=== PATIENT | female | born 1970 | race Caucasian/White ===

== ENCOUNTER 2020-01-02 13:06 | Emergency (ER) | payer OTHER, SELFPAY ==
--- NOTE | 2020-01-02 13:09 | ED.GENADULT ---
HPI - General Adult General Chief complaint: Upper Respiratory Infection Stated complaint: ears/sore throat/chest tightness Time Seen by Provider: 01/02/20 13:08 Source: patient Mode of arrival: ambulatory Limitations: no limitations History of Present Illness HPI narrative: 49-year-old female patient presents to the [facility] with complaints of cold symptoms, sore throat and headache for the past 2 days. Patient states she is also had a little bit of bilateral ear pain. States she has had a little bit of a runny nose but denies any cough. Patient states she also feels like she has had some chest pain feels like something is sitting on her chest since this morning. Denies any shortness of breath, abdominal pain, nausea, vomiting or diarrhea. Patient states she did get a flu shot this year. Denies taking anything for her symptoms. Related Data Home Medications Medication Instructions Recorded Confirmed No Home Medications 01/02/20 01/02/20 Allergies Allergy/AdvReac Type Severity Reaction Status Date / Time Iodinated Contrast Media Allergy Unknown Anaphylactic Verified 12/06/19 11:11 Shock peanut Allergy Unknown Verified 12/06/19 11:11 Contrast Media Allergy Unknown ANAPHYLAXIS Uncoded 03/21/18 11:15 Review of Systems Review of Systems: Narrative: CONSTITUTIONAL: Denies fever, chills, or sweats. EYES: Denies visual changes, redness, or discharge. ENT: Positive rhinorrhea, congestion, sore throat, and bilateral otalgia. CARDIOVASCULAR: Positive midsternal chest pain, denies palpitations, or edema. RESPIRATORY: Denies cough or dyspnea. GASTROINTESTINAL: Denies abdominal pain, nausea, vomiting, or diarrhea. GENITOURINARY: Denies dysuria or hematuria. SKIN: Denies rash or itching. MUSCULOSKELETAL: Denies back pain, joint pain, or myalgia. NEUROLOGIC: Positive headache, denies numbness, or weakness. PSYCHIATRIC: Denies anxiety or depression. [facility] Past Medical History Medical History (Updated 01/02/20 @ 13:44 by TREVOR Burns) Asthma Hypothyroidism Surgical History Surgical History (Updated 01/02/20 @ 13:14 by TREVOR Burns) Hx of tonsillectomy Social History Social History Smoking status: Never smoker Alcohol intake: never Comments At the time of my signature I agree with nursing past medical history, surgical, social, and family history. There is no relevant family history pertinent to the presenting complaint. Exam Narrative: Exam Narrative: GENERAL: Well-appearing, well-nourished, and in no acute distress. HEAD: Normocephalic, atraumatic. No tenderness noted to frontal maxillary sinuses on palpation. EYES: PERRLA and EOMI. ENT: Nares with erythema and edema noted bilaterally, no rhinorrhea or epistaxis. Mucous membranes moist. Posterior pharynx with some postnasal drip present but no erythema. Bilateral TMs are clear with no erythema or foreign bodies in the canal. NECK: Supple. No lymphadenopathy CHEST: Clear to auscultation. No respiratory distress. Patient able talk in clear complete sentences. HEART: Regular rate and rhythm. No murmur heard. Normal peripheral pulses. ABDOMEN: Soft, nontender, nondistended, normal active bowel sounds. EXTREMITIES: Normal range of motion. No edema. SKIN: Warm, dry, no rash. NEURO: No focal deficits. Alert and oriented x3. Course Reevaluation(s) Reevaluation #1: Reevaluated patient. Discussed with patient her bedside strep test today is negative. Discussed with her sugar is with in normal range at this time. Discussed with her that her EKG looks okay today however I am concerned that she is complaining of this chest pain feels like something is sitting on her chest and the fact that I am not able to do a full cardiac work-up here I would recommend that she go the ER for further evaluation and treatment. Patient is refusing to do so stating that she thinks is just stress. Discussed wit
[2020-01-02 13:14] VITALS: BP 119/72; PULSE 86; RESP 16; TEMP 36.7; O2SAT 100
[2020-01-02 13:39] LABS: Glucose Point of Care 82 (65-105)
--- NOTE | 2020-01-02 14:33 | ECG_ITS ---
Measurements Intervals [place] Rate: 68 P: 48 MT: 121 QRS: 74 QRSD: 86 T: 68 QT: 370 QTc: 395 Interpretive Statements SINUS RHYTHM INCOMPLETE RIGHT BUNDLE BRANCH BLOCK LOW QRS VOLTAGE IN PRECORDIAL LEADS BORDERLINE ECG Electronically Signed On 01-02-2020 18:34:03 [employer]ER by Mark Villegas D.O.
== END 2020-01-02 13:55 | disposition home or self-care (01) ==
PROVIDERS: Emergency Provider Nurse Practitioner Family; PCP Family Medicine
DX: J02.9 Acute pharyngitis, unspecified (principal); R07.9 Chest pain, unspecified; J45.909 Unspecified asthma, uncomplicated; E03.9 Hypothyroidism, unspecified; I45.10 Unspecified right bundle-branch block
CPT/HCPCS: 87081; 87880; 93005; 99213; G0463

== ENCOUNTER 2020-01-07 13:54 | Emergency (ER) | payer OTHER, SELFPAY ==
--- NOTE | ~2020-01-07 | CT_ITS ---
EXAMINATION: CT cervical spine wo con EXAM DATE: 01/07/2020 14:32 INDICATION: Neck pain after fall. TECHNIQUE: Spiral CT of the cervical spine was performed without contrast. Axial images were reviewe d. Coronal and sagittal reformatted images were also reviewed. The dose-length product (DLP) for thi s examination was 130.49 mGy-cm. The exposure was tailored according to patient size (auto mA exposu re control), and iterative reconstruction (ASIR) was used as additional dose reduction technique. ere is no prior study for comparison. FINDINGS: There is no evidence of acute cervical fracture. The odontoid process is intact. Pre-den s space is normal. Prevertebral soft tissue is normal. There are no soft tissue abnormalities ident ified. There is no disc space widening or traumatic vertebral body subluxation suspected. Moderate cervical disc disease C5-6 and C6-7. Most narrowed neural foramina is the left C6-7 neural foramina w hich has moderate stenosis. A detailed level by level evaluation of spondylosis can be added as adde ndum if requested. IMPRESSION: 1. No acute cervical fracture. Reviewed, dictated and finalized at location A. CUTTER
[2020-01-07 14:03] VITALS: BP 120/77; PULSE 18; RESP 80; TEMP 36.4; O2SAT 100
--- NOTE | 2020-01-07 16:17 | ED.FALL ---
HPI - Fall General Chief Complaint: Fall Stated Complaint: neck injury Time Seen by Provider: 01/07/20 16:07 Source: patient Mode of arrival: ambulatory Limitations: no limitations History of Present Illness HPI Narrative: Patient is a 49 yo female who presents after sustaining a ground level fall yesterday. Her dog tripped her causing her to fall backwards. patient did not strike head or lose consciousness. Patient notes pain to neck and low back as well as left bicep. Patient has taken antiinflammatories with no relief. Patient presents in no distress. pain is constant and made worse with activity. presents in no distress. Onset (ago): day(s) Fall from: standing Context: tripped/slipped Location of injury: back Related Data Allergies Allergy/AdvReac Type Severity Reaction Status Date / Time Iodinated Contrast Media Allergy Unknown Anaphylactic Verified 01/07/20 15:02 Shock peanut Allergy Unknown Verified 01/07/20 14:03 Contrast Media Allergy Unknown ANAPHYLAXIS Uncoded 01/07/20 15:02 Review of Systems Review of Systems: All systems reviewed & are unremarkable except as noted in HPI and below PMFSH Past Medical History Medical History Asthma Hypothyroidism Surgical History Surgical History Hx of tonsillectomy Social History Social History Smoking status: Never smoker Alcohol intake: never Gender identity (if verbalized by the patient): Female Exam Const: General: cooperative, healthy appearing, comfortable, no acute distress, well developed, alert and awake Nutritional Appearance: average body habitus and well nourished Orientation/consciousness: oriented to person, oriented to place and oriented to time Limitations: no limitations HENMT: Head: normal to inspection, normocephalic and atraumatic Ears: hearing grossly normal bilaterally General nose exam: Normal external nose present Face and sinus: normal facial exam Mouth: Yes Normal oral and palatal mucosa present and Yes lip normal Eyes: General: appearance normal, both eyes and all related structures Visual Granados: normal visual granados by confrontation Eyelids: eyelids normal Conjunctivae: conjunctivae normal Pupils: Equal, round and reactive pupils present Neck: Neck: normal visual inspection, full ROM and tender Chest: Chest palpation & inspection: normal inspection of the chest Resp: Effort & Inspection: normal respiratory effort and able to speak in complete sentences Auscultation: clear to auscultation bilaterally Cardio: Rate: regular rate Rhythm: regular rhythm Back/Spine/Pelvis: Back: CVA tenderness (right) Cervical Spine: Cervical spine tenderness Thoracic/Lumbar Spine: thoracic and lumbar spine normal to inspection and paraspinal muscle tenderness Skin: General skin exam: normal color and no rashes or lesions noted Trauma: no lacerations or abrasions Hair: normal Nails: normal Neuro: General: patient oriented x3, gait normal, moves all extremities and CN's II-XI intact bilaterally Cranial nerves: Yes CN's II-XII intact bilaterally Cognition (Neuro): normal cognition Speech: normal speech Gait exam (Neuro): Normal gait present Extrem: General: normal to inspection Left upper extremity: normal to inspection and full ROM Shoulder/upper arm images: 1. tender left bicep Psych: Appearance: grossly normal and well kempt Mental Status: mental status grossly normal Speech and movement: Normal speech and movement present Course Course Emergency Course: patient resting comfortably no distress aware of case findings Vital Signs Vital signs: Vital Signs Temperature 97.6 F 01/07/20 14:03 Pulse Rate 18 L 01/07/20 14:03 Respiratory Rate 80 H 01/07/20 14:03 Blood Pressure 120/77 01/07/20 14:03 Pulse Oximetry 100 01/07/20 14:03
== END 2020-01-07 17:10 | disposition home or self-care (01) ==
PROVIDERS: Emergency Provider Emergency Medicine; PCP Family Medicine
DX: S16.1XXA Strain of muscle, fascia and tendon at neck level, initial encounter (principal); S39.012A Strain of muscle, fascia and tendon of lower back, initial encounter; J45.909 Unspecified asthma, uncomplicated; E03.9 Hypothyroidism, unspecified; W54.8XXA Other contact with dog, initial encounter
CPT/HCPCS: 72125; 99284; L0140

== ENCOUNTER 2020-01-18 09:38 | Outpatient (CLI) | payer OTHER, SELFPAY ==
[2020-01-18 10:09] LABS: Basophils Percent Auto 0.5 % (0.2-1.2); Eosinophils Absolute Auto 0.1 K/mm3 (0-0.3); Eosinophils Percent Auto 1.6 % (0-4.4); Hematocrit 42.9 % (37.0-47.0); Hemoglobin 14.6 g/dL (12.0-15.0); Immature Granulocyte Absolute 0.01 K/mm3 (0.00-0.031); Immature Granulocyte Percent A 0.2 % (0-0.5); Lymphocytes Absolute Auto 1.34 K/mm3 (0.9-3.2); Lymphocytes Percent Auto 30.8 % (18.3-44.2); Mean Corpuscular Hemoglobin 28.3 pg (26-34); Mean Corpuscular Volume 83.3 fl (80-100); Mean Platelet Volume 10.8 fl (7.4-10.4); Monocytes Absolute Auto 0.3 K/mm3 (0.1-0.6); Monocytes Percent Auto 7.4 % (2.6-8.5); Neutrophils Absolute Auto 2.6 K/mm3 (1.3-6.7); Neutrophils Percent Auto 59.5 % (45.5-73.1); Platelet Count Result 206 k/mm3 (150-375); Red Blood Count 5.15 M/mm3 (4.2-5.4); Red Cell Distribution Width 15.1 % (11.5-14.5); White Blood Count 4.4 K/mm3 (4.5-10.0)
[2020-01-18 10:23] LABS: Add Urine Microscopic? YES; Appearance Urine Clear (Clear); Bacteria Urine Trace /hpf; Bilirubin Urine Negative (Negative); Blood Urine 1+ (Negative); Color Urine Yellow (Yellow); Glucose Urine UA Negative (Negative); Ketones Urine Negative (Negative); Leukocyte Esterase Ur 1+ LEU/UL (NEGATIVE); Mucus Urine Few /lpf; Nitrate Urine Negative (Negative); Protein Urine Negative (Negative); Specific Grav Ur 1.023 (1.001-1.035); Squamous Epithelial Cell Urine Many /hpf (Few); Urobilinogen Urine Negative mg/dL (<2.0)
[2020-01-18 10:24] LABS: Alanine Aminotransferase 17 U/L (4-35); Albumin Level 4.5 g/dL (3.5-5.1); Alkaline Phosphatase 61 U/L (38-126); Aspartate Amino Transferase 22 U/L (14-36); Bilirubin,Total 0.6 mg/dL (0.2-1.3); Blood Urea Nitrogen 12 mg/dL (7-17); Carbon Dioxide 29 mmol/L (22-30); Chloride 103 mmol/L (98-107); Cholesterol 202 mg/dL (0-200); Estimated Glomerular Filt Rate > 60; Glucose 92 mg/dL (65-105); HDL Direct 58 mg/dL; Potassium 4.3 mmol/L (3.4-5.0); Sodium 142 mmol/L (137-145); Triglycerides 90 mg/dL (<150)
[2020-01-18 10:35] LABS: LDL Cholesterol Direct 111 mg/dL
[2020-01-18 10:49] LABS: Free T4 Free Thyroxine 0.82 ng/mL (0.78-2.19)
[2020-01-18 14:38] LABS: T4 Thyroxine 6.84 ug/dL (5.53-11.0)
[2020-01-20 07:19] LABS: Triiodothryronine T3 Uptake 32 % (22-35)
== END 2020-01-18 09:39 | disposition home or self-care (01) ==
PROVIDERS: PCP Family Medicine; Visit Provider Physician Assistant
DX: Z00.00 Encounter for general adult medical examination without abnormal findings (principal); E06.3 Autoimmune thyroiditis
CPT/HCPCS: 36415; 80053; 80061; 81001; 84436; 84439; 84443; 84479; 85025

== ENCOUNTER 2020-02-08 07:37 | Outpatient (CLI) | payer OTHER, SELFPAY ==
[2020-02-08 08:14] LABS: Basophils Percent Auto 0.2 % (0.2-1.2); Eosinophils Absolute Auto 0.1 K/mm3 (0-0.3); Eosinophils Percent Auto 1.1 % (0-4.4); Hematocrit 40.2 % (37.0-47.0); Hemoglobin 14.1 g/dL (12.0-15.0); Immature Granulocyte Absolute 0.01 K/mm3 (0.00-0.031); Immature Granulocyte Percent A 0.2 % (0-0.5); Lymphocytes Absolute Auto 1.18 K/mm3 (0.9-3.2); Lymphocytes Percent Auto 26.6 % (18.3-44.2); Mean Corpuscular HGB Conc 35.1 g/dl (32-36); Mean Corpuscular Hemoglobin 28.9 pg (26-34); Mean Corpuscular Volume 82.4 fl (80-100); Mean Platelet Volume 11.7 fl (7.4-10.4); Monocytes Absolute Auto 0.4 K/mm3 (0.1-0.6); Monocytes Percent Auto 8.8 % (2.6-8.5); Neutrophils Absolute Auto 2.8 K/mm3 (1.3-6.7); Neutrophils Percent Auto 63.1 % (45.5-73.1); Platelet Count Result 194 k/mm3 (150-375); Red Blood Count 4.88 M/mm3 (4.2-5.4); Red Cell Distribution Width 14.6 % (11.5-14.5); White Blood Count 4.4 K/mm3 (4.5-10.0)
[2020-02-08 09:48] LABS: Add Urine Microscopic? YES; Appearance Urine Clear (Clear); Bacteria Urine Trace /hpf; Bilirubin Urine Negative (Negative); Blood Urine Negative (Negative); Color Urine Yellow (Yellow); Glucose Urine UA Negative (Negative); Ketones Urine Trace mg/dL (Negative); Leukocyte Esterase Ur 1+ LEU/UL (NEGATIVE); Mucus Urine Heavy /lpf; Nitrate Urine Negative (Negative); Protein Urine Negative (Negative); Specific Grav Ur 1.019 (1.001-1.035); Squamous Epithelial Cell Urine Many /hpf (Few); Transitional Epi Cells Urine Rare /hpf (None Seen); Urobilinogen Urine Negative mg/dL (<2.0)
== END 2020-02-08 07:38 | disposition home or self-care (01) ==
PROVIDERS: PCP Family Medicine; Visit Provider Physician Assistant
DX: D72.819 Decreased white blood cell count, unspecified (principal); E03.9 Hypothyroidism, unspecified; R31.9 Hematuria, unspecified
CPT/HCPCS: 36415; 81001; 84443; 85025

== ENCOUNTER 2021-01-18 08:39 | Emergency (ER) | payer OTHER, SELFPAY ==
[2021-01-18 08:53] VITALS: BP 132/83; PULSE 92; RESP 16; TEMP 36.2; O2SAT 100
--- NOTE | 2021-01-18 09:10 | ED.GENADULT ---
HPI - General Adult General Chief complaint: Eye Problems Stated complaint: Eye Pain Time Seen by Provider: 01/18/21 09:00 Source: patient and RN notes reviewed Mode of arrival: ambulatory Limitations: no limitations History of Present Illness HPI narrative: Patient presents today complaining of swelling around her left eye since last night. Denies itching. Reports that it stings and is worse this morning then it was last night. States it stings more when her tears hit the area. She was outside all day yesterday. Last night she used her normal eye cream in that area, but does not know the active ingredients in the eye cream, but states it made the area worse. She tried some Benadryl without relief. She also took her normal nondrowsy antihistamine this morning. Denies pain, redness, or drainage to the eye. Denies vision changes. Denies recent illness. Patient rarely wears contacts, but did yesterday. MD complaint: Left eye swelling Related Data Allergies Allergy/AdvReac Type Severity Reaction Status Date / Time Iodinated Contrast Media Allergy Unknown Anaphylactic Verified 01/18/21 08:52 Shock peanut Allergy Unknown Verified 01/18/21 08:52 Contrast Media Allergy Unknown ANAPHYLAXIS Uncoded 01/18/21 08:52 Review of Systems Review of Systems: Narrative: CONSTITUTIONAL: Denies body aches, fever, chills, or sweats. EYES: Denies visual changes, redness, or discharge. Swelling surrounding left eye ENT: Denies rhinorrhea, congestion, sore throat, or otalgia. CARDIOVASCULAR: Denies chest pain, palpitations, or edema. RESPIRATORY: Denies cough or dyspnea. GASTROINTESTINAL: Denies abdominal pain, nausea, vomiting, or diarrhea. GENITOURINARY: Denies dysuria or hematuria. SKIN: Denies rash, itching, or wounds. MUSCULOSKELETAL: Denies back pain, joint pain, or myalgia. NEUROLOGIC: Denies headache, numbness, tingling, or weakness. PSYCH: Denies depression or anxiety. [facility] Past Medical History Medical History Asthma Hypothyroidism Surgical History Surgical History Hx of tonsillectomy Social History Social History Smoking status: Never smoker Alcohol intake: never Substance use: never Substance use type: does not use Gender identity (if verbalized by the patient): Female Comments At time of signature, I have reviewed and agree with nursing past medical, surgical, social and family history unless otherwise noted. Please see nursing chart for further information. There is no relevant family history pertinent to the presenting complaint Exam Narrative: Exam Narrative: GENERAL: Well-appearing, well-nourished, and in no acute distress. HEAD: Normocephalic, atraumatic. EYES: EOMI. PERRL. No redness or drainage. Conjunctivae normal. Mild edema and erythema to skin surrounding the lateral and inferior left eye without papules or vesicles. No induration. Nontender to palpation. Lashes normal. ENT: Mucous membranes pink and moist. Nares clear. No rhinorrhea. TMs normal bilaterally. Throat normal. Uvula midline. NECK: Normal AROM. Supple. No lymphadenopathy. CHEST: No respiratory distress. EXTREMITIES: Normal range of motion. No edema. SKIN: Warm, dry, no rash. Capillary refill normal. Normal skin turgor. NEURO: No focal deficits. Alert and oriented x3. Gait steady. PSYCH: Normal affect. No signs of depression or anxiety. Course Vital Signs Vital signs: Vital Signs Temperature 97.1 F L 01/18/21 08:53 Pulse Rate 92 01/18/21 08:53 Respiratory Rate 16 01/18/21 08:53 Blood Pressure 132/83 01/18/21 08:53 Pulse Oximetry 100 01/18/21 08:53 Temperature 97.1 F L 01/18/21 08:53 Pulse Rate 92 01/18/21 08:53 Respiratory Rate 16 01/18/21 08:53 Blood Pressure 132/83 01/18/21 08:53 Pulse Oximetry 100
== END 2021-01-18 09:15 | disposition home or self-care (01) ==
PROVIDERS: Emergency Provider Nurse Practitioner; PCP Family Medicine
DX: L25.9 Unspecified contact dermatitis, unspecified cause (principal); J45.909 Unspecified asthma, uncomplicated; E03.9 Hypothyroidism, unspecified
CPT/HCPCS: 99213; A9270; G0463

== ENCOUNTER → 2021-02-02 08:01 | Outpatient (CLI) | payer OTHER, SELFPAY ==
[2021-02-02 23:26] LABS: SARS-CoV-2 RNA PCR Negative
== END ==
PROVIDERS: PCP Family Medicine; Visit Provider Nurse Practitioner Family
DX: Z20.822 Contact with and (suspected) exposure to COVID-19 (principal)
CPT/HCPCS: C9803; U0003; U0005

== ENCOUNTER 2021-02-06 10:00 | Outpatient (CLI) | payer OTHER, SELFPAY ==
[2021-02-06 10:33] LABS: Add Urine Microscopic? YES; Appearance Urine Clear (Clear); Bacteria Urine Trace /hpf; Bilirubin Urine Negative (Negative); Blood Urine Negative (Negative); Color Urine Yellow (Yellow); Glucose Urine UA Negative (Negative); Ketones Urine Negative (Negative); Leukocyte Esterase Ur 2+ LEU/UL (NEGATIVE); Mucus Urine Few /lpf; Nitrate Urine Negative (Negative); Protein Urine Negative (Negative); Specific Grav Ur 1.017 (1.001-1.035); Squamous Epithelial Cell Urine Many /hpf (Few); Urobilinogen Urine Negative mg/dL (<2.0)
[2021-02-10 08:16] LABS: FSH 118.6 mIU/mL (***); LH 57.7 mIU/mL (***)
== END 2021-02-06 10:01 | disposition home or self-care (01) ==
PROVIDERS: PCP Family Medicine; Visit Provider Obstetrics & Gynecology
DX: R31.9 Hematuria, unspecified (principal); N91.1 Secondary amenorrhea
CPT/HCPCS: 36415; 81001; 83001; 83002

== ENCOUNTER 2021-02-08 14:02 | Outpatient (CLI) | payer OTHER, SELFPAY | END 2021-02-08 14:03 | disposition home or self-care (01) | LOC: ANHCOVIDVC 14:02 | PROVIDERS: PCP Family Medicine | DX: Z23 Encounter for immunization (principal) | CPT/HCPCS: 0001A; 91300 ==

== ENCOUNTER → 2021-02-17 02:18 | Outpatient (CLI) | payer OTHER, SELFPAY ==
[2021-02-17 19:28] LABS: SARS-CoV-2 RNA PCR Negative
== END ==
PROVIDERS: PCP Family Medicine; Visit Provider Internal Medicine Gastroenterology
DX: Z01.812 Encounter for preprocedural laboratory examination (principal); Z20.822 Contact with and (suspected) exposure to COVID-19
CPT/HCPCS: C9803; U0003; U0005

== ENCOUNTER 2021-02-20 01:58 | Day surgery (SDC) | payer OTHER, SELFPAY ==
[2021-02-03 10:38] VITALS: BMI 25.4
[2021-02-20 10:52] VITALS: BP 120/91; PULSE 97; RESP 16; TEMP 36.4; O2SAT 100
[2021-02-20] MEDS: LACTATED RINGERS 1,000 ML 150 ML IV CONT (10:54)
[2021-02-20 12:54] LABS: Basophils Percent Auto 0.4 % (0.2-1.2); Eosinophils Absolute Auto 0.1 K/mm3 (0-0.3); Eosinophils Percent Auto 0.9 % (0-4.4); Hematocrit 43.2 % (37.0-47.0); Hemoglobin 15.5 g/dL (12.0-15.0); Immature Granulocyte Absolute 0.01 K/mm3 (0.00-0.031); Immature Granulocyte Percent A 0.2 % (0-0.5); Lymphocytes Percent Auto 26.4 % (18.3-44.2); Mean Corpuscular HGB Conc 35.9 g/dl (32-36); Mean Corpuscular Volume 83.7 fl (80-100); Mean Platelet Volume 10.8 fl (7.4-10.4); Monocytes Absolute Auto 0.4 K/mm3 (0.1-0.6); Neutrophils Absolute Auto 3.5 K/mm3 (1.3-6.7); Neutrophils Percent Auto 65.1 % (45.5-73.1); Platelet Count Result 208 k/mm3 (150-375); Red Blood Count 5.16 M/mm3 (4.2-5.4); Red Cell Distribution Width 12.9 % (11.5-14.5); White Blood Count 5.3 K/mm3 (4.5-10.0)
[2021-02-20 13:05] LABS: Alanine Aminotransferase 18 U/L (4-35); Albumin Level 4.3 g/dL (3.5-5.1); Alkaline Phosphatase 73 U/L (38-126); Anion Gap 5 mmol/L (8-16); Aspartate Amino Transferase 23 U/L (14-36); Bilirubin,Total 0.6 mg/dL (0.2-1.3); Blood Urea Nitrogen 8 mg/dL (7-17); Calcium 9.2 mg/dL (8.4-10.2); Carbon Dioxide 29 mmol/L (22-30); Chloride 106 mmol/L (98-107); Estimated CRCL calculation 77 ml/min; Estimated Glomerular Filt Rate > 60; Glucose 89 mg/dL (65-105); Potassium 4.2 mmol/L (3.4-5.0); Sodium 140 mmol/L (137-145)
[2021-02-20 13:08] LABS: INR 0.9; Prothrombin Time 12.6 Seconds (11.1-14.7)
[2021-02-20 13:09] LABS: Partial Thromboplastin Time 31.7 SECONDS (22.3-36.8)
--- NOTE | 2021-02-20 13:11 | WPDGICN ---
GI Consult Note Consult date/time: 02/20/21 13:11 HPI: Reason for visit is colonoscopy. This very pleasant lady seen in consultation request the primary physician. Screening colonoscopy. Recommendation: Colonoscopy. History: This very pleasant lady is here for screening colonoscopy. GI review systems negative. She does complain of some easy bleeding. Otherwise review of systems unremarkable. Physical examination: General: very pleasant patient in no acute distress. HEENT: Head was normocephalic sclerae is clear mouth without masses neck was supple. Heart: Rate rhythm regular without S3 or S4. Lungs: CTA. Abdomen: Soft with no guarding or rigidity. Bowel sounds were active. Neurologic: Cranial nerves 2 through 12 intact. No focal defects. No clonus. Musculoskeletal system: Revealed no joint tenderness or swelling no muscle atrophy. Extremities: Reveal no significant edema. Skin: Warm and dry with normal turgor. Mental status: intact. Patient is alert and oriented. Review of Systems Review of Systems: All systems reviewed & are unremarkable except as noted in HPI and below PMFSH Past Medical History Medical History Asthma Hypothyroidism Surgical History Surgical History Hx of tonsillectomy Social History Social History Smoking status: Never smoker Alcohol intake: never Substance use: never Substance use type: unknown Living arrangements: with family Gender identity (if verbalized by the patient): Female Spiritual care concerns: No Meds Home Medications and Allergies Home Medications Medication Instructions Recorded Confirmed Type ascorbate calcium (vitamin C) 1 tab-cap PO DAILY 02/03/21 02/06/21 History elderberry fruit [Elderberry] 200 mg PO DAILY 02/03/21 02/06/21 History multivitamin with minerals [All 1 tablet PO DAILY 02/03/21 02/06/21 History Purpose Multivitamin-Min] azithromycin 250 mg tablet See Rx Instructions PO .COMPLEX #6 02/06/21 02/20/21 Rx tablet methylprednisolone 4 mg tablets in See Rx Instructions PO PER PKG DIR 02/06/21 02/20/21 Rx a dose pack #21 ea Allergies Allergy/AdvReac Type Severity Reaction Status Date / Time Iodinated Contrast Media Allergy Unknown Anaphylactic Verified 02/20/21 10:48 Shock peanut Allergy Unknown Verified 02/20/21 10:48 Contrast Media Allergy Unknown ANAPHYLAXIS Uncoded 02/03/21 10:25 Vital Signs Vital Signs - 24 hr 02/20/21 10:52 Temperature 36.4 C L Pulse Rate 97 Respiratory Rate 16 Blood Pressure 120/91 H Pulse Oximetry 100 Results Labs CBC & Chem 7: 02/20/21 12:49 02/20/21 12:49 Labs: Short CBC 02/20/21 Range/Units 12:49 WBC 5.3 (4.5-10.0) K/mm3 Hgb 15.5 H (12.0-15.0) g/dL Hct 43.2 (37.0-47.0) % Plt Count 208 (150-375) k/mm3 [facility] 02/20/21 12:49 Sodium 140 Potassium 4.2 Chloride 106 Carbon Dioxide 29 BUN 8 Creatinine 0.90 Glucose 89 Calcium 9.2 Liver Function 02/20/21 Range/Units 12:49 Total Bilirubin 0.6 (0.2-1.3) mg/dL Direct Bilirubin 0.0 (0-0.3) mg/dL AST 23 (14-36) U/L ALT 18 (4-35) U/L Alkaline Phosphatase 73 (38-126) U/L Albumin 4.3 (3.5-5.1) g/dL
[2021-02-20 13:39] VITALS: BP 104/71; PULSE 81; RESP 15; O2SAT 100
[2021-02-20 13:49] VITALS: BP 106/69; PULSE 76; RESP 18; O2SAT 100
[2021-02-20 13:59] VITALS: BP 111/78; PULSE 72; RESP 18; O2SAT 100
== END 2021-02-20 14:15 | disposition home or self-care (01) ==
PROVIDERS: PCP Family Medicine; Visit Provider Internal Medicine Gastroenterology
PROC: 0DJD8ZZ Inspection of Lower Intestinal Tract, Via Natural or Artificial Opening Endoscopic (ICD-10-PCS; CPT 45378; principal; 2021-02-20 12:00)
DX: Z12.11 Encounter for screening for malignant neoplasm of colon (principal); D12.4 Benign neoplasm of descending colon; D12.3 Benign neoplasm of transverse colon; E03.9 Hypothyroidism, unspecified; J45.909 Unspecified asthma, uncomplicated
CPT/HCPCS: 45380; 36415; 80048; 80076; 85025; 85610; 85730; 88305; J2704; J7120

== ENCOUNTER 2021-03-01 14:02 | Outpatient (CLI) | payer OTHER, SELFPAY | END 2021-03-01 14:03 | disposition home or self-care (01) | LOC: ANHCOVIDVC 14:02 | PROVIDERS: PCP Family Medicine | DX: Z23 Encounter for immunization (principal) | CPT/HCPCS: 0002A; 91300 ==

== ENCOUNTER 2022-03-12 10:59 | Emergency (ER) | payer OTHER, SELFPAY ==
[2022-03-12 11:08] VITALS: BP 114/80; PULSE 83; RESP 16; TEMP 36.2; O2SAT 100
--- NOTE | 2022-03-12 11:11 | ED.SKABFB ---
HPI - Skin/Abscess/Foreign Bdy General Chief complaint: Skin/Abscess/Foreign Body Stated complaint: Rash on Face Time Seen by Provider: 03/12/22 11:11 Source: patient Mode of arrival: ambulatory Limitations: no limitations History of Present Illness HPI narrative: 51-year-old female presents with complaint of itchy, red rash to face For 2 days. Is taking Benadryl to treat itching. Reports history of similar rash 1.5 months ago. Took Benadryl and applied a lotion and it improved. Unsure what she is having allergic reaction to. All systems reviewed and negative except as noted above. Related Data Home Medications Medication Instructions Recorded Confirmed ascorbate calcium (vitamin C) 1 tab-cap PO DAILY 02/03/21 03/12/22 elderberry fruit [Elderberry] 200 mg PO DAILY 02/03/21 03/12/22 escitalopram oxalate 10 mg PO DAILY 03/12/22 03/12/22 hydroxyzine HCl 25 mg PO DIRECTED 03/12/22 03/12/22 Allergies Allergy/AdvReac Type Severity Reaction Status Date / Time Iodinated Contrast Media Allergy Unknown Anaphylactic Verified 03/12/22 11:09 Shock peanut Allergy Unknown Verified 03/12/22 11:09 Contrast Media Allergy Unknown ANAPHYLAXIS Uncoded 03/12/22 11:09 Review of Systems Review of Systems: CONSTITUTIONAL: Denies fever, chills, or sweats. EYES: Denies visual changes, redness, or discharge. ENT: Denies rhinorrhea, congestion, sore throat, or otalgia. CARDIOVASCULAR: Denies chest pain, palpitations, or edema. RESPIRATORY: Denies cough or dyspnea. GASTROINTESTINAL: Denies abdominal pain, nausea, vomiting, or diarrhea. GENITOURINARY: Denies dysuria or hematuria. SKIN: Reports itchy rash to face. MUSCULOSKELETAL: Denies back pain, joint pain, or myalgia. NEUROLOGIC: Denies headache, numbness, or weakness. PSYCHIATRIC: Denies anxiety or depression. All other systems reviewed are negative, except as documented in HPI. [facility] Past Medical History Medical History (Updated 03/12/22 @ 11:20 by Holly Walker NP) Adenomatous colon polyp Asthma Hypothyroidism Surgical History Surgical History Hx of tonsillectomy Family History Family History (Updated 03/01/21 @ 09:09 by Carla Carrillo [facility]) Father Diabetes mellitus Hypertension Mother Depression Thyroid disorder Other Depression Grandparent Diabetes mellitus Heart disease Social History Social History (Updated 06/27/21 @ 07:43 by Marcia Torres) Smoking status: Never smoker Second hand tobacco smoke exposure: No Alcohol intake: never Substance use: never Substance use type: does not use Gender identity (if verbalized by the patient): Female Sexual Orientation (if Verbalized by the Patient): Straight or Heterosexual Spiritual care concerns: No Comments At time of signature, agree with nursing past medical, surgical, social and family history. There is no relevant family history pertinent to the presenting complaint. Exam Narrative: GENERAL: This is a well-nourished, well-developed patient, in no apparent distress. HEAD: normocephalic, atraumatic. EYES: PERRL. Sclera clear/white. Vision is grossly intact. EARS: External ears normal NOSE: External nose normal NECK: Neck supple, non-tender without lymphadenopathy, masses or thyromegaly. CARDIOVASCULAR: Regular rate and rhythm without murmurs, gallops, or rubs. RESPIRATORY: Clear to auscultation. Breath sounds equal bilaterally. No wheezes, rales, or rhonchi. SKIN: warm, Dry, intact with no suspicious lesions, good texture and turgor. Erythema to forehead extending into eyebrow area, erythema to cheeks and mouth area. There are no papular rash or macules. There is noticed scaling. No significant swelling. NEURO: awake, alert, and oriented to person, place and time. There were no obvious focal neurologic abnormalities. EXTREMITIES: Normal range of motion all extremities. Course Course Level of Care: E
[2022-03-12 11:13] VITALS: BP 114/80; PULSE 83; RESP 16; TEMP 36.2; O2SAT 100
== END 2022-03-12 11:22 | disposition home or self-care (01) ==
PROVIDERS: Emergency Provider Nurse Practitioner Family; PCP Family Medicine
DX: R21 Rash and other nonspecific skin eruption (principal); J45.909 Unspecified asthma, uncomplicated; E03.9 Hypothyroidism, unspecified
CPT/HCPCS: 99213; G0463

== ENCOUNTER → 2022-04-11 14:47 | Outpatient (CLI) | payer OTHER, SELFPAY ==
--- NOTE | ~2022-04-11 | XR_ITS ---
XR chest 2V DATE: 04/11/2022 15:03 INDICATION: Dyspnea TECHNIQUE: 2 views COMPARISON: None FINDINGS: Normal heart size. No hilar or mediastinal enlargement. Moderate bilateral hyperinflation. No pulmonary infiltrate or consolidation, pleural effusion or pulmonary vascular congestion or pneumo thorax. IMPRESSION: No active cardiopulmonary disease Reviewed, dictated and finalized at location B.
== END ==
PROVIDERS: PCP Physician Assistant; Visit Provider Physician Assistant
DX: R06.00 Dyspnea, unspecified (principal)
CPT/HCPCS: 71046

== ENCOUNTER → 2022-04-23 10:41 | Outpatient (CLI) | payer OTHER, SELFPAY ==
--- NOTE | ~2022-04-23 | XR_ITS ---
EXAMINATION: XR foot LT min 3V DATE: 04/23/2022 12:08 INDICATION: Polyarthralgia. Positive GAVINO. TECHNIQUE: 4 views of left foot were obtained. COMPARISON: None. FINDINGS: Bone alignment is normal. No fracture. There is chronic flattening of head of second metata rsal, consistent with osteonecrosis (Freiberg's infraction). There is mild osteoarthritis of first me tatarsophalangeal joint. There is an enthesophyte at plantar aspect of calcaneal tuberosity. IMPRESSION: 1. Mild osteoarthritis of first metatarsophalangeal joint. Reviewed, dictated and finalized at location A.
--- NOTE | ~2022-04-23 | XR_ITS ---
EXAM: XR hand LT 2V, XR hand RT 2V DATE: 04/23/2022 12:08 HISTORY: Polyarthralgia, positive GAVINO . COMPARISON: None available. FINDINGS: Normal mineralization. No fracture or dislocation. No lytic or blastic lesion. Joint space s are maintained. No erosion or periosteal change. Soft tissues within normal limits. IMPRESSION: Normal left and right hand radiograph findings. Reviewed, dictated and finalized at location K. IMPRESSION: Normal left and right hand radiograph findings.
--- NOTE | ~2022-04-23 | XR_ITS ---
EXAMINATION: XR sacroiliac joints min 3V DATE: 04/23/2022 12:08 INDICATION: Polyarthralgia, positive GAVINO TECHNIQUE: AP and left and right oblique views of the sacroiliac joints were obtained. COMPARISON: None. FINDINGS: Bone alignment is normal. No fracture. Erosions along the inferior aspect of the iliac sides of the b ilateral sacral iliac joints suspicious for inflammatory sacroiliitis. Bilateral hip joint spaces are normal. A few phleboliths in the pelvis. IMPRESSION: 1. Erosions along the iliac sides of the bilateral sacral joints suspicious for inflammatory arthriti s. Reviewed, dictated and finalized at location B. IMPRESSION: 1. Erosions along the iliac sides of the bilateral sacral joints suspicious for inflammatory arthritis.
--- NOTE | ~2022-04-23 | XR_ITS ---
EXAMINATION: XR foot RT min 3V DATE: 04/23/2022 12:08 INDICATION: Polyarthralgia. Positive GAVINO. TECHNIQUE: 4 views of right foot were obtained. COMPARISON: None. FINDINGS: There is mild hallux valgus. No fracture. There is chronic flattening of head of second met atarsal, consistent with osteonecrosis (Freiberg's infraction). There is severe osteoarthritis of fir st metatarsophalangeal joint and mild osteoarthritis of talonavicular joint. There is an enthesophyte at plantar aspect of calcaneal tuberosity. IMPRESSION: 1. Mild hallux valgus. 2. Polyarticular osteoarthritis. Reviewed, dictated and finalized at location A.
== END ==
PROVIDERS: PCP Family Medicine; Visit Provider Physician Assistant
DX: M25.50 Pain in unspecified joint (principal); R76.8 Other specified abnormal immunological findings in serum; M20.11 Hallux valgus (acquired), right foot; M19.071 Primary osteoarthritis, right ankle and foot; M19.072 Primary osteoarthritis, left ankle and foot
CPT/HCPCS: 72202; 73120; 73630

== ENCOUNTER 2022-04-25 12:34 | Outpatient (CLI) | payer OTHER, SELFPAY ==
--- NOTE | 2022-04-27 14:18 | WPDPFTINT ---
PFT Procedure Performed PFT Procedure Performed Spirometry with Pre/Post Bronchodilator Plethysmography (Lung Vol) Diffusing Cap (DLCO) Flow Vol Loop PFT Interpretation Lung volumes were measured with the body plethysmography method. Lung volumes are unremarkable. Spirometry showed normal expiratory flow rates and a normal FEV1 to FVC ratio of 81%. Following administration of a bronchodilator there was no significant change in the expiratory flow rates. Lung diffusion capacity is normal at 76% predicted. The flow volume loop is unremarkable. Impression: Spirometry, lung volumes, and lung diffusion capacity all within the normal range.
== END 2022-04-25 12:35 | disposition home or self-care (01) ==
PROVIDERS: PCP Family Medicine; Referring Provider Physician Assistant; Visit Provider Family Medicine
DX: J45.909 Unspecified asthma, uncomplicated (principal); R06.00 Dyspnea, unspecified
CPT/HCPCS: 94060; 94726; 94729

== ENCOUNTER 2022-10-19 10:52 | Emergency (ER) | payer OTHER, SELFPAY ==
[2022-10-19 11:16] VITALS: BP 134/85; PULSE 95; RESP 18; TEMP 35.7; O2SAT 100
--- NOTE | 2022-10-19 12:36 | ED.URI ---
HPI - URI/Sore Throat General Chief Complaint: Upper Respiratory Infection Stated Complaint: Sore Throat,Lt Ear Irritation History of Present Illness HPI Narrative: 52 y/o female presented for c/o sore throat with post nasal drainage, onset this week. Patient endorses lesions to back of throat at night that are gone in the morning. Denies Shortness of breath cough vomiting, diarrhea, fevers or chills. 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 Related Data Home Medications Medication Instructions Recorded Confirmed ascorbate calcium (vitamin C) 1 tab-cap PO DAILY 02/03/21 04/18/22 elderberry fruit 200 mg capsule 200 mg PO DAILY 02/03/21 04/18/22 escitalopram oxalate 10 mg tablet 10 mg PO DAILY 03/12/22 04/18/22 hydroxyzine HCl 25 mg tablet 25 mg PO DIRECTED 03/12/22 04/18/22 Allergies Allergy/AdvReac Type Severity Reaction Status Date / Time Iodinated Contrast Media Allergy Unknown Anaphylactic Verified 04/18/22 15:08 Shock peanut Allergy Unknown Verified 04/18/22 15:08 Contrast Media Allergy Unknown ANAPHYLAXIS Uncoded 04/18/22 15:08 Review of Systems Review of Systems: CONSTITUTIONAL: Denies body aches, fever, chills, or sweats. EYES: Denies visual changes, redness, or discharge. ENT: reports rhinorrhea, congestion, left otalgia. CARDIOVASCULAR: Denies chest pain, palpitations, or edema. RESPIRATORY: Denies dyspnea. GASTROINTESTINAL: Denies abdominal pain, nausea, vomiting, or diarrhea. SKIN: Denies rash, itching, or wounds. MUSCULOSKELETAL: Denies back pain, joint pain, or myalgia. NEUROLOGIC: Denies headache PMFSH Past Medical History Medical History Adenomatous colon polyp Asthma Hypothyroidism Surgical History Surgical History Hx of tonsillectomy Family History Family History Father Diabetes mellitus Hypertension Mother Depression Thyroid disorder Other Depression Grandparent Diabetes mellitus Heart disease Social History Social History Social History: Smoking status: Never smoker Second hand tobacco smoke exposure: No Alcohol intake: never Substance use: never Substance use type: does not use Gender identity (if verbalized by the patient): Female Sexual Orientation (if Verbalized by the Patient): Straight or Heterosexual Spiritual care concerns: No Exam Narrative: GENERAL: Ill-appearing, no acute distress. EYES: conjunctivae clear ENT: Mucous membranes moist. TM pearly taylor with normal light reflex bilaterally; no tragal tenderness. Oropharynx erythematous without lesions. Tonsils enlarged 1+ without exudate. No drooling, no hoarseness, no trismus, uvula midline. No tripod positioning, hot potato voice, or soft palate swelling. NECK: Supple. No lymphadenopathy CHEST: Clear to auscultation, breath sounds equal. No respiratory distress, speaks in full sentences. HEART: Regular rate and rhythm. No murmur heard. SKIN: Warm, dry, no rash. NEURO: Alert and oriented x3. Course Course Emergency Course: Patient is aware of diagnosis, understands and agrees to treatment plan. Anticipatory guidance given. Patient agrees to follow-up as directed and is aware of reasons to seek care at the emergency department. Portions of this record may have been created with voice recognition software Level of Care: Express Care Visit Vital Signs Vital signs: Vital Signs Temperature 96.3 F L 10/19/22 11:16 Pulse Rate 95 10/19/22 11:16 Respiratory Rate 18 10/19/22 11:16 Blood Pressure 134/85 10/19/22 11:16 Pulse Oximetry 100 10/19/22 11:16 Oxygen Delivery Room Air 10/19/22 11:16 Temperature 96.3 F L 10/19/22 11:16 Pulse Rate 95 10/19/22 11:16 Respiratory Rate 18 10/19/22 11:16 B
== END 2022-10-19 12:44 | disposition home or self-care (01) ==
PROVIDERS: Emergency Provider Nurse Practitioner Family; PCP Family Medicine
DX: J02.9 Acute pharyngitis, unspecified (principal); E03.9 Hypothyroidism, unspecified
CPT/HCPCS: 87081; 87880; 99213; G0463

== ENCOUNTER 2023-01-10 11:17 | Outpatient (CLI) | payer OTHER, SELFPAY ==
--- NOTE | ~2023-01-10 | US_ITS ---
EXAMINATION: US venous doppler [facility] DATE: 01/10/2023 12:19 INDICATION: Left lower limb pain TECHNIQUE: Lang scale images without and with compression and Doppler images of the left lower extrem ity veins were obtained. COMPARISON: None FINDINGS: The left common femoral vein, profunda femoral vein, femoral vein, popliteal vein, peroneal trunk, posterior tibial veins, and greater saphenous vein are patent. IMPRESSION: 1. Patent left lower extremity veins. No evidence of deep venous thrombosis. Reviewed, dictated and finalized at location L. 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
== END 2023-01-10 11:18 | disposition home or self-care (01) ==
PROVIDERS: PCP Family Medicine; Visit Provider Physician Assistant
DX: M79.605 Pain in left leg (principal); R09.89 Other specified symptoms and signs involving the circulatory and respiratory systems
CPT/HCPCS: 93971

== ENCOUNTER → 2023-05-14 11:24 | Outpatient (CLI) | payer OTHER, SELFPAY ==
--- NOTE | ~2023-05-14 | DEXA_ITS ---
Bone Density Report Name: UMESH BRIAN Age: 53 Sex: Female Ethnicity: White Date of : 1970 Indication: postmenopausal; screening for osteoporosis; asthma or emphysema; Referring Provider: TK SHERMAN Study: Bone densitometry was performed. Exam Date: May 14, 2023 Accession number: [id number] Bone Density: Region BMD T-score Z-score Classification AP Spine (L1-L4) 1.081 0.3 1.2 Normal Femoral Neck (Left) 0.856 0.1 0.9 Normal Total Hip (Left) 1.038 0.8 1.3 Normal Femoral Neck (Right) 0.861 0.1 1.0 Normal Total Hip (Right) 1.002 0.5 1.0 Normal Total Hip Mean 1.020 0.7 1.2 Normal World Health Organization criteria for BMD impression classify patients as: Normal (T-score at or above -1.0), Osteopenia (T-score between -1.0 and -2.5), or Osteoporosis (T-score at or below -2.5). 10-year Fracture Risk: FRAX not reported because: All T-scores for Spine Total, Hip Total, Femoral Neck at or above -1.0 Clinical Information Provided by Patient: Has the following medical conditions: Asthma or Emphysema Patient maximum height was 72 Menopause Age: 52 Drinks caffeinated beverages Onset of menses at age 15 Number of children 2 Impression: The patient has normal bone mass. Discussion: BONE DENSITY IS ABOVE THE MINIMUM DESIRABLE LEVEL AT ALL SKELETAL SITES TESTED. This patient?s bone mineral density is above the minimum desirable level (T-score -1.0 or better) at all sites measured. The patient should follow a healthful lifestyle (good nutrition with adequate calcium and vitamin D, and appropriate weight-bearing exercise). Follow-Up: Consider repeating this study in 5 years or sooner if there is some new clinical indication. Reported by: DARON on 05/14/2023 11:59:00 AM. Reviewed, dictated and finalized at location A. [facility]
--- NOTE | ~2023-05-14 | MM_ITS ---
EXAMINATION: MM screening [facility] BI w jennifer HISTORY: Screening mammogram TECHNIQUE: Craniocaudal and mediolateral oblique 3-D tomosynthesis images were obtained and synthetic 2-D images were generated. CAD analysis was submitted and interpreted. COMPARISON: 09/07/2004 BREAST PARENCHYMAL COMPOSITION: The breasts are almost entirely fatty. FINDINGS: The proximal a 4.5 x 9.7 mm soft tissue mass is noted in the right subareolar area. Diagnos tic right mammogram and right breast ultrasound examination are recommended. There is an irregular approximately 4 mm mass in the anterior outer mid left breast. Diagnostic left mammogram and left breast ultrasound examination are recommended. IMPRESSION: 1. Bilateral breast masses 2. Bilateral diagnostic mammography and breast ultrasound examination are recommended BI-RADS Category 0: Incomplete: Needs additional imaging evaluation. Reviewed, dictated and finalized at location A. IMPRESSION: 1. Bilateral breast masses 2. Bilateral diagnostic mammography and breast ultrasound examination are recom mended BI-RADS Category 0: Incomplete: Needs additional imaging evaluation.
== END ==
PROVIDERS: PCP Family Medicine; Visit Provider Obstetrics & Gynecology Gynecology
DX: Z12.31 Encounter for screening mammogram for malignant neoplasm of breast (principal); Z78.0 Asymptomatic menopausal state; R92.8 Other abnormal and inconclusive findings on diagnostic imaging of breast
CPT/HCPCS: 77063; 77067; 77080

== ENCOUNTER → 2023-06-12 09:12 | Outpatient (CLI) | payer OTHER, SELFPAY ==
--- NOTE | ~2023-06-12 | MMUS_ITS ---
EXAMINATION: MM diagnostic any BI w jennifer, US breast BI limited HISTORY: Bilateral breast masses reported on 05/14/2023 screening mammogram TECHNIQUE: Additional 3-D tomosynthesis images of both breasts were performed and synthetic 2-D image s were generated. CAD analysis was submitted and interpreted. High resolution limited targeted bilate ral breast ultrasound was performed. COMPARISON: 05/14/2023 bilateral screening mammogram 09/07/2014 bilateral screening mammogram FINDINGS: MAMMOGRAPHIC FINDINGS: There is a 4 x 8.2 mm circumscribed mass in the right subareolar area. There is a 4 mm circumscribed mass in the anterior lower outer quadrant of the left breast. Targeted ultrasound of these 2 areas was performed. ULTRASOUND: Right breast 3:00 subareolar area: There is an antiparallel irregular hypoechoic solid mass measuring approximately 9 x 6.3 x 5 mm dimension. There is posterior shadowing. This lesion is very suspicious . Ultrasound-guided biopsy is recommended. Left breast 4:00 5 cm from nipple: 3.4 x 4.7 x 4.9 mm parallel circumscribed hypoechoic lesion with c entral fatty density and vascular signal, consistent with a small benign-appearing lymph node. IMPRESSION: 1. Suspicious shadowing solid right subareolar breast 9 x 6.3 x 5 mm mass at 3:00 2. Ultrasound-guided biopsy of right subareolar breast mass is recommended BI-RADS category 4, suspicious findings. Dr. Looyla telephoned the report and ultrasound-guided biopsy recommendation for the right subareolar b reast mass on 06/12/2023 at 1053 hours to [place] at Dr. Hernandez's office. Reviewed, dictated and finalized at location A. IMPRESSION: 1. Suspicious shadowing solid right subareolar breast 9 x 6.3 x 5 mm mass at 3: 00 2. Ultrasound-guided biopsy of right subareolar breast mass is recommended BI-RADS category 4, suspicious findings. Dr. Loyola telephoned the report and ultrasound-guided biopsy recommendation for the right subareolar breast mass on 06/12/2023 at [address] [place] [address] Dr[address] Jose Carlos carlos's office.
== END ==
PROVIDERS: PCP Family Medicine; Visit Provider Obstetrics & Gynecology Gynecology
DX: R92.8 Other abnormal and inconclusive findings on diagnostic imaging of breast (principal)
CPT/HCPCS: 76642; 77062; 77066; G0279

== ENCOUNTER 2023-07-11 10:07 | Outpatient (CLI) | payer OTHER, SELFPAY ==
--- NOTE | ~2023-07-11 | MMUS_ITS ---
EXAMINATION: US breast biopsy RT w image, MM post biopsy invasive RT DATE: 07/11/2023 11:34 (accession [id number]), 07/11/2023 11:18 (accession [id number]) INDICATION: Indeterminate right breast mass at the 3:00 location. Ultrasound-guided core biopsy is re quested to evaluate for malignancy. TECHNIQUE AND FINDINGS: The risks and potential benefits of the procedure were discussed with the patient including bleeding and infection. A time out was performed. The skin of the right breast was prepared and draped in usua l sterile fashion. 1% lidocaine was used for superficial anesthesia. 1% lidocaine with epinephrine wa s used for deep anesthesia. A vacuum-assisted biopsy needle was advanced through to the outer edge of the region of interest from a medial approach utilizing sonographic guidance. A total of three tissue core samples were obtained through the lesion. A tissue marker clip was then placed at the biopsy site. Hemostasis was achieved . A sterile bandage was applied. The patient tolerated procedure well and there was no evidence of immediate complication. The patient was given verbal instructions to return to the Emergency Department in the event of severe breast pa in or rapid breast enlargement. A two view right breast mammogram was obtained to document tissue mar ker clip placement. IMPRESSION: 1. Successful ultrasound-guided vacuum-assisted biopsy of right breast mass with tissue marker placem ent. Reviewed, dictated and finalized at location A. IMPRESSION: 1. Successful ultrasound-guided vacuum-assisted biopsy of right breast mass wit h tissue marker placement.
== END 2023-07-11 10:08 | disposition home or self-care (01) ==
PROVIDERS: PCP Family Medicine; Visit Provider Physician Assistant Surgical
DX: N63.10 Unspecified lump in the right breast, unspecified quadrant (principal); R92.8 Other abnormal and inconclusive findings on diagnostic imaging of breast; N60.01 Solitary cyst of right breast
CPT/HCPCS: 19083; 88305; A4648

== ENCOUNTER 2023-09-23 11:47 | Emergency (ER) | payer OTHER, SELFPAY ==
[2023-09-23 12:08] VITALS: BP 130/81; PULSE 77; RESP 18; TEMP 36.8; O2SAT 99
--- NOTE | 2023-09-23 12:26 | ED.URI ---
HPI - URI/Sore Throat General Chief Complaint: Upper Respiratory Infection Stated Complaint: sinus pressure Time Seen by Provider: 09/23/23 12:14 Source: patient and RN notes reviewed Mode of arrival: ambulatory Limitations: no limitations History of Present Illness HPI Narrative: Patient presents today with a 5 week history of sinus congestion and pressure or, postnasal drip. She reports green/yellow nasal drainage. She has tried NyQuil, allergy medication, cough medicine without much relief. Patient takes Humira for ankylosing spondylitis. Related Data Home Medications Medication Instructions Recorded Confirmed ascorbate calcium (vitamin C) 1 tab-cap PO DAILY 02/03/21 05/27/23 elderberry fruit 200 mg capsule 200 mg PO DAILY 02/03/21 05/27/23 escitalopram oxalate 10 mg tablet 10 mg PO DAILY 03/12/22 05/27/23 hydroxyzine HCl 25 mg tablet 25 mg PO DIRECTED 03/12/22 05/27/23 adalimumab 40 mg/0.4 mL 40 mg subcut WEEKLY 10/20/22 05/27/23 subcutaneous pen kit (Humira(CF) Pen) Allergies Allergy/AdvReac Type Severity Reaction Status Date / Time Iodinated Contrast Media Allergy Severe Anaphylactic Verified 06/17/23 16:34 Shock peanut Allergy Severe Anaphylaxis Verified 06/17/23 16:34 Contrast Media Allergy Severe ANAPHYLAXIS Uncoded 06/17/23 16:34 Review of Systems Review of Systems: CONSTITUTIONAL: Denies body aches, fever, chills, or sweats. EYES: Denies visual changes, redness, or discharge. ENT: Denies rhinorrhea, sore throat, or otalgia.+ congestion, postnasal drip, sinus pressure CARDIOVASCULAR: Denies chest pain, palpitations, or edema. RESPIRATORY: Denies cough or dyspnea. GASTROINTESTINAL: Denies abdominal pain, nausea, vomiting, or diarrhea. GENITOURINARY: Denies dysuria or hematuria. SKIN: Denies rash, itching, or wounds. MUSCULOSKELETAL: Denies back pain, joint pain, or myalgia. NEUROLOGIC: Denies headache, numbness, tingling, or weakness. PSYCH: Denies depression or anxiety. 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 Surgical History Surgical History Hx of tonsillectomy Family History Family History Father Diabetes mellitus Hypertension Mother Depression Thyroid disorder Other Depression Grandparent Diabetes mellitus Heart disease Social History Social History Social History: Smoking status: Never smoker Second hand tobacco smoke exposure: No Alcohol intake: never Substance use: never Substance use type: does not use Lack of Transportation: No Lack of Food: Never True Current Housing: I Have Housing Concerned About Future Housing: No Difficulty Paying Gas/Electric Bills: No Difficulty Paying for Meds: No Currently Unemployed: No Education: Bachelor's Degree Difficulty w/ Childcare or Family Care: No Living arrangements: with family Occupation/Education: occupation Gender identity (if verbalized by the patient): Female Sexual Orientation (if Verbalized by the Patient): Straight or Heterosexual Spiritual care concerns: No Comments At time of signature, I have reviewed and agree with nursing past medical, surgical, social and family history unless otherwise noted. Please see nursing chart for further information. There is no relevant family history pertinent to the presenting complaint Exam Narrative: GENERAL: Well-appearing, well-nourished, and in no acute distress. HEAD: Normocephalic, atraumatic. EYES: EOMI. No redness or drainage. Conjunctivae normal. ENT: Mucous membranes pink and moist. Nares congested. Bilateral swollen and erythematous nasal turbinat
== END 2023-09-23 12:34 | disposition home or self-care (01) ==
PROVIDERS: Emergency Provider Nurse Practitioner; PCP Family Medicine
DX: J01.90 Acute sinusitis, unspecified (principal); J45.909 Unspecified asthma, uncomplicated; E03.9 Hypothyroidism, unspecified; M45.9 Ankylosing spondylitis of unspecified sites in spine
CPT/HCPCS: 99213; G0463

== ENCOUNTER → 2023-10-23 12:15 | Outpatient (CLI) | payer OTHER, SELFPAY ==
--- NOTE | ~2023-10-23 | XR_ITS ---
EXAMINATION: XR foot RT min 3V DATE: 10/23/2023 12:45 INDICATION: Right foot pain TECHNIQUE: Four views of the right foot were obtained. COMPARISON: 04/23/2022 FINDINGS: Mild hallux valgus is again noted. There is subtle cortical irregularity in the mid neck of the second metatarsal. There is severe osteoarthritis of the first metatarsophalangeal joint and mil d osteoarthritis of multiple interphalangeal joints as well as at the talonavicular joint. Again note d is chronic flattening of the head of the second metatarsal. An enthesophyte of the plantar calcanea l tuberosity is again noted. IMPRESSION: 1. Possible nondisplaced fracture in the mid neck of the second metatarsal. 2. Polyarticular osteoarthritis. 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
== END ==
PROVIDERS: PCP Physician Assistant; Visit Provider Physician Assistant
DX: M79.89 Other specified soft tissue disorders (principal); M19.071 Primary osteoarthritis, right ankle and foot
CPT/HCPCS: 73630

== ENCOUNTER 2024-02-24 15:47 | Emergency (ER) | payer OTHER, SELFPAY ==
--- NOTE | 2024-02-24 15:59 | ED.URI ---
HPI - URI/Sore Throat General Chief Complaint: Upper Respiratory Infection Stated Complaint: sinus congestion,headache Time Seen by Provider: 02/24/24 16:00 Source: patient Mode of arrival: ambulatory Limitations: no limitations History of Present Illness HPI Narrative: 53-year-old male presents with complaint of sinus congestion and pressure, sinus headaches, postnasal drainage, sore throat, cough for 8 days. Afebrile. Taking Zyrtec D x4 days with no relief of symptoms. Reports drainage is now yellow. Concern for sinus infection. All systems reviewed and negative except as noted above. Related Data Home Medications Medication Instructions Recorded Confirmed ascorbate calcium (vitamin C) 1 tab-cap PO DAILY 02/03/21 02/24/24 elderberry fruit 200 mg capsule 200 mg PO DAILY 02/03/21 02/24/24 escitalopram oxalate 10 mg tablet 10 mg PO DAILY 03/12/22 02/24/24 adalimumab 40 mg/0.4 mL 40 mg subcut WEEKLY 10/20/22 02/24/24 subcutaneous pen kit (Humira(CF) Pen) oxaprozin 600 mg tablet mg 02/24/24 Allergies Allergy/AdvReac Type Severity Reaction Status Date / Time Iodinated Contrast Media Allergy Severe Anaphylactic Verified 02/24/24 16:02 Shock peanut Allergy Severe Anaphylaxis Verified 02/24/24 16:02 Contrast Media Allergy Severe ANAPHYLAXIS Uncoded 06/17/23 16:34 Review of Systems Review of Systems: CONSTITUTIONAL: Denies fever, chills, or sweats. reports fatigue. EYES: Denies visual changes, redness, or discharge. ENT: Reports rhinorrhea, congestion, sore throat , sinus pressure. Denies otalgia. CARDIOVASCULAR: Denies chest pain, palpitations, or edema. RESPIRATORY: Reports cough. Denies dyspnea. GASTROINTESTINAL: Denies abdominal pain, nausea, vomiting, or diarrhea. GENITOURINARY: Denies dysuria or hematuria. SKIN: Denies rash or itching. MUSCULOSKELETAL: Denies back pain, joint pain, or myalgia. NEUROLOGIC: Denies headache, numbness, or weakness. PSYCHIATRIC: Denies anxiety or depression. All other systems reviewed are negative, except as documented in HPI. [facility] Past Medical History Medical History Adenomatous colon polyp Ankylosing spondylitis Asthma Hypothyroidism Immunocompromised state due to drug therapy Surgical History Surgical History Hx of tonsillectomy Family History Family History Father Diabetes mellitus Hypertension Mother Depression Thyroid disorder Other Depression Grandparent Diabetes mellitus Heart disease Social History Social History Social History: Smoking status: Never smoker Second hand tobacco smoke exposure: No Alcohol intake: never Substance use: never Substance use type: does not use Lack of Transportation: No Lack of Food: Never True Current Housing: I Have Housing Concerned About Future Housing: No Difficulty Paying Gas/Electric Bills: No Difficulty Paying for Meds: No Currently Unemployed: No Education: Bachelor's Degree Difficulty w/ Childcare or Family Care: No Living arrangements: with family Occupation/Education: occupation Gender identity (if verbalized by the patient): Female Sexual Orientation (if Verbalized by the Patient): Straight or Heterosexual Spiritual care concerns: No Comments At time of signature, agree with nursing past medical, surgical, social and family history. There is no relevant family history pertinent to the presenting complaint. Exam Narrative: GENERAL: This is a well-nourished, well-developed patient, in no apparent distress. HEAD: normocephalic, atraumatic. EYES: PERRL. Sclera clear/white. Vision is grossly intact. EARS: External ears normal, auditory canals clear and without drainage, Fluid bilateral TMs with
[2024-02-24 16:02] VITALS: BP 130/91; PULSE 97; RESP 18; TEMP 36.4; O2SAT 100
[2024-02-24 16:04] VITALS: BP 130/91; PULSE 97; RESP 18; TEMP 36.4; O2SAT 100
== END 2024-02-24 16:30 | disposition home or self-care (01) ==
PROVIDERS: Emergency Provider Nurse Practitioner Family; PCP Family Medicine
DX: J01.90 Acute sinusitis, unspecified (principal); M45.9 Ankylosing spondylitis of unspecified sites in spine; J45.909 Unspecified asthma, uncomplicated; E03.9 Hypothyroidism, unspecified
CPT/HCPCS: 99213; G0463

== ENCOUNTER 2024-04-02 15:20 | Outpatient (CLI) | payer OTHER, SELFPAY ==
--- NOTE | ~2024-04-02 | XR_ITS ---
EXAMINATION: XR chest 2V 04/02/2024 15:47 INDICATION: Cough PROCEDURE: 2 view chest COMPARISON: 04/11/2022 FINDINGS: The lungs are clear. The cardiomediastinal silhouette is within normal limits. There are no pleural effusions. There is no pneumothorax suspected. IMPRESSION: 1: NO ACUTE CARDIOPULMONARY DISEASE. Reviewed, dictated and finalized at location B.
== END 2024-04-02 15:21 ==
PROVIDERS: PCP Family Medicine; Visit Provider Family Medicine
DX: R05.9 Cough, unspecified (principal)
CPT/HCPCS: 71046

== ENCOUNTER 2024-04-20 07:21 | Outpatient (NON) | payer OTHER, SELFPAY | END 2024-04-20 07:22 | disposition home or self-care (01) | LOC: ANHLAB 04-21 07:23 | PROVIDERS: PCP Family Medicine; Visit Provider Internal Medicine Gastroenterology | DX: K21.00 Gastro-esophageal reflux disease with esophagitis, without bleeding (principal) | CPT/HCPCS: 88305 ==

== ENCOUNTER 2024-04-20 09:19 | Day surgery (SDC) | payer OTHER, SELFPAY ==
[2024-03-20 08:51] VITALS: BMI 30.5
--- NOTE | 2024-04-14 12:47 | PM.HPGS ---
History of Present Illness History of Present Illness Consent: Risks, benefits, and alternatives have been discussed and questions answered. Patient agrees to proceed with procedure. Chief complaint: Dysphagia unspecified. Narrative: Olivia Reynoso is a 53 year old female referred for investigation of dysphagia. 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 Surgical History Surgical History Hx of tonsillectomy Family History Family History Father Diabetes mellitus Hypertension Mother Depression Thyroid disorder Other Depression Grandparent Diabetes mellitus Heart disease Social History Social History Social History: Smoking status: Never smoker Second hand tobacco smoke exposure: No Alcohol intake: never Substance use: never Substance use type: does not use Lack of Transportation: No Lack of Food: Never True Current Housing: I Have Housing Concerned About Future Housing: No Difficulty Paying Gas/Electric Bills: No Difficulty Paying for Meds: No Currently Unemployed: No Education: Bachelor's Degree Difficulty w/ Childcare or Family Care: No Living arrangements: with family Occupation/Education: occupation Gender identity (if verbalized by the patient): Female Sexual Orientation (if Verbalized by the Patient): Straight or Heterosexual Spiritual care concerns: No Meds Home Medications and Allergies Home Medications Medication Instructions Recorded Confirmed Type ascorbate calcium (vitamin C) 1 tab-cap PO DAILY 02/03/21 04/06/24 History elderberry fruit 200 mg capsule 200 mg PO DAILY 02/03/21 04/06/24 History escitalopram oxalate 10 mg tablet 10 mg PO DAILY 03/12/22 04/06/24 History adalimumab 40 mg/0.4 mL 40 mg subcut WEEKLY 10/20/22 04/06/24 History subcutaneous pen kit (Humira(CF) Pen) albuterol sulfate 90 mcg/actuation 1 inh inhalation Q4H PRN shortness 05/27/23 04/06/24 Rx aerosol inhaler of breath or wheezing #8.5 grams umeclidinium 62.5 mcg-vilanterol 1 inh inhalation DAILY #60 ea 05/27/23 04/06/24 Rx 25 mcg/actuation powdr for inhalation (Anoro Ellipta) levothyroxine 75 mcg tablet 75 mcg PO DAILY #90 tabs 10/07/23 04/06/24 Rx omeprazole 40 mg capsule,delayed 40 mg PO DAILY #30 caps 03/17/24 04/06/24 Rx release Allergies Allergy/AdvReac Type Severity Reaction Status Date / Time Iodinated Contrast Media Allergy Severe Anaphylactic Verified 04/06/24 11:42 Shock peanut Allergy Severe Anaphylaxis Verified 04/06/24 11:42 Contrast Media Allergy Severe ANAPHYLAXIS Uncoded 04/06/24 11:42 Assessment and Plan Assessment and plan (1) Dysphagia: Code(s): R13.10 - Dysphagia, unspecified Status: Acute Assessment and Plan: EGD with possible biopsy or dilatation or cautery.
--- NOTE | 2024-04-20 07:15 | WPDANESEPPF ---
Anes - Initial Pre Proc Eval Procedure: Operation Date: 04/20/24 12:00 Proposed Procedures p Esophagogastroduodenoscopy - Darin Bhatt MD Date/Time: 04/20/24 07:15 Surgeon: Darin Bhatt MD Pre Op Diagnosis: Dysphagia unspecified. Patient Data Age: 53 Gender: F Height: 1.83 m Weight: 104.6 kg Allergies Allergy/AdvReac Type Severity Reaction Status Date / Time Iodinated Contrast Media Allergy Severe Anaphylactic Verified 04/20/24 11:06 Shock peanut Allergy Severe Anaphylaxis Verified 04/20/24 11:06 Contrast Media Allergy Severe ANAPHYLAXIS Uncoded 04/20/24 11:06 Home Medications Medication Instructions Recorded Confirmed Type ascorbate calcium (vitamin C) 1 tab-cap PO DAILY 02/03/21 04/20/24 History elderberry fruit 200 mg capsule 200 mg PO DAILY 02/03/21 04/20/24 History escitalopram oxalate 10 mg tablet 10 mg PO DAILY 03/12/22 04/20/24 History adalimumab 40 mg/0.4 mL 40 mg subcut WEEKLY 10/20/22 04/20/24 History subcutaneous pen kit (Humira(CF) Pen) albuterol sulfate 90 mcg/actuation 1 inh inhalation Q4H PRN shortness 05/27/23 04/20/24 Rx aerosol inhaler of breath or wheezing #8.5 grams umeclidinium 62.5 mcg-vilanterol 1 inh inhalation DAILY #60 ea 05/27/23 04/20/24 Rx 25 mcg/actuation powdr for inhalation (Anoro Ellipta) levothyroxine 75 mcg tablet 75 mcg PO DAILY #90 tabs 10/07/23 04/20/24 Rx omeprazole 40 mg capsule,delayed 40 mg PO DAILY #30 caps 03/17/24 04/20/24 Rx release Patient hx anesthesia problems: none Family hx anesthesia problems: none Results Review: All pre-operative results and documents have been reviewed as part of the pre-operative evaluation. [facility] Past Medical History Medical History Adenomatous colon polyp Ankylosing spondylitis Asthma Hypothyroidism Immunocompromised state due to drug therapy Surgical History Surgical History Hx of tonsillectomy Family History Family History Father Diabetes mellitus Hypertension Mother Depression Thyroid disorder Other Depression Grandparent Diabetes mellitus Heart disease Social History Social History Social History: Smoking status: Never smoker Second hand tobacco smoke exposure: No Alcohol intake: never Substance use: never Substance use type: does not use Lack of Transportation: No Lack of Food: Never True Current Housing: I Have Housing Concerned About Future Housing: No Difficulty Paying Gas/Electric Bills: No Difficulty Paying for Meds: No Currently Unemployed: No Education: Bachelor's Degree Difficulty w/ Childcare or Family Care: No Living arrangements: with family Occupation/Education: occupation Gender identity (if verbalized by the patient): Female Sexual Orientation (if Verbalized by the Patient): Straight or Heterosexual Spiritual care concerns: No Anes - Eval Final PreProcedure Day of Procedure 04/20/24 07:15 Patient weight: obese Heart: regular rate and rhythm Lungs: clear to auscultation Airway: Mallampati scale class II Neurological: alert and oriented Last oral intake: >/= 8 hours ASA classification: III Emergent: no Anesthetic plan: proceed Anesthesia type and monitoring: general GIVS and standard monitoring Results Review: All pre-operative results and documents have been reviewed as part of the pre-operative evaluation. Informed Consent: The patient's anesthetic plan and its attendant risks and benefits were discussed with the patient/family/POA. Questions were solicited and answers provided to the satisfaction of the patient/family/POA.
--- NOTE | 2024-04-20 11:01 | PM.HPGS ---
History of Present Illness History of Present Illness Consent: Risks, benefits, and alternatives have been discussed and questions answered. Patient agrees to proceed with procedure. Chief complaint: Dysphagia unspecified. Narrative: Olivia Reynoso is a 53 year old female With known acid reflux disease for which she takes omeprazole. Lately she has had difficulty swallowing with food seeming to stick in her mid chest. There is also a sensation of a lump in the throat. Review of Systems Review of Systems: All systems reviewed & are unremarkable except as noted in HPI and below PMFSH Past Medical History Medical History Adenomatous colon polyp Ankylosing spondylitis Asthma Hypothyroidism Immunocompromised state due to drug therapy Surgical History Surgical History Hx of tonsillectomy Family History Family History Father Diabetes mellitus Hypertension Mother Depression Thyroid disorder Other Depression Grandparent Diabetes mellitus Heart disease Social History Social History Social History: Smoking status: Never smoker Second hand tobacco smoke exposure: No Alcohol intake: never Substance use: never Substance use type: does not use Lack of Transportation: No Lack of Food: Never True Current Housing: I Have Housing Concerned About Future Housing: No Difficulty Paying Gas/Electric Bills: No Difficulty Paying for Meds: No Currently Unemployed: No Education: Bachelor's Degree Difficulty w/ Childcare or Family Care: No Living arrangements: with family Occupation/Education: occupation Gender identity (if verbalized by the patient): Female Sexual Orientation (if Verbalized by the Patient): Straight or Heterosexual Spiritual care concerns: No Meds Home Medications and Allergies Home Medications Medication Instructions Recorded Confirmed Type ascorbate calcium (vitamin C) 1 tab-cap PO DAILY 02/03/21 04/06/24 History elderberry fruit 200 mg capsule 200 mg PO DAILY 02/03/21 04/06/24 History escitalopram oxalate 10 mg tablet 10 mg PO DAILY 03/12/22 04/06/24 History adalimumab 40 mg/0.4 mL 40 mg subcut WEEKLY 10/20/22 04/06/24 History subcutaneous pen kit (Humira(CF) Pen) albuterol sulfate 90 mcg/actuation 1 inh inhalation Q4H PRN shortness 05/27/23 04/06/24 Rx aerosol inhaler of breath or wheezing #8.5 grams umeclidinium 62.5 mcg-vilanterol 1 inh inhalation DAILY #60 ea 05/27/23 04/06/24 Rx 25 mcg/actuation powdr for inhalation (Anoro Ellipta) levothyroxine 75 mcg tablet 75 mcg PO DAILY #90 tabs 10/07/23 04/06/24 Rx omeprazole 40 mg capsule,delayed 40 mg PO DAILY #30 caps 03/17/24 04/06/24 Rx release Allergies Allergy/AdvReac Type Severity Reaction Status Date / Time Iodinated Contrast Media Allergy Severe Anaphylactic Verified 04/06/24 11:42 Shock peanut Allergy Severe Anaphylaxis Verified 04/06/24 11:42 Contrast Media Allergy Severe ANAPHYLAXIS Uncoded 04/06/24 11:42 Exam Const: General: alert Orientation/consciousness: patient oriented x3 Resp: Auscultation: clear to auscultation bilaterally Cardio: Rhythm: regular rhythm GI: GI Palp: Yes Soft to palpation and No Tenderness to palpation present (GI) Neuro: General: patient oriented x3 Assessment and Plan Assessment and plan (1) Dysphagia: Code(s): R13.10 - Dysphagia, unspecified Status: Acute Assessment and Plan: EGD with possible biopsy or dilatation or cautery.
[2024-04-20 11:09] VITALS: BP 144/104; PULSE 92; RESP 16; TEMP 36.4; O2SAT 98
--- NOTE | 2024-04-20 11:16 | SUR.PREOP ---
Pt's pre-op BP 144/104, Pt denies HTN diagnosis, no BP home medications. Dr. Hoang notified of pt's pre-op BP, no new orders at this time.
[2024-04-20] MEDS: LACTATED RINGERS 1,000 ML 150 ML IV CONT (11:22)
[2024-04-20 11:48] VITALS: BP 103/70; PULSE 81; RESP 16; O2SAT 98
[2024-04-20 11:58] VITALS: BP 110/79; PULSE 70; RESP 16; O2SAT 98
[2024-04-20 12:08] VITALS: BP 120/82; PULSE 78; RESP 16; O2SAT 98
--- NOTE | 2024-04-20 13:18 | WPDANESPN ---
Anes - Prog Note Post-Op Date/Time: 04/20/24 13:18 Cardiovascular status: normal Respiratory status: normal Airway patency: baseline Mental status: baseline Post-Op hydration status: normal Vital Signs: Last Vital Signs Temp 36.4 C 04/20/24 11:09 Pulse 78 04/20/24 12:08 Resp 16 04/20/24 12:08 BP 120/82 04/20/24 12:08 Pulse Ox 98 04/20/24 12:08 O2 Del Method Room Air 04/20/24 12:08 Pain Score (VAS): 0 I/O: Intake & Output 04/19/24 04/20/24 04/20/24 23:59 07:59 15:59 Intake Total 100 Balance 100 Post-procedural complaints: none Patient Feedback: Patient satisfied with anesthetic care. Other Findings: Patient vital signs back to baseline. Patient denies nausea and vomiting. Patient's pain under control. Patient OK for discharge.
== END 2024-04-20 12:24 | disposition home or self-care (01) ==
PROVIDERS: PCP Family Medicine; Visit Provider Internal Medicine Gastroenterology
PROC: 0DJ08ZZ Inspection of Upper Intestinal Tract, Via Natural or Artificial Opening Endoscopic (ICD-10-PCS; CPT 43235; principal; 2024-04-20 12:00)
DX: R13.19 Other dysphagia (principal); K21.00 Gastro-esophageal reflux disease with esophagitis, without bleeding
CPT/HCPCS: 43239

== ENCOUNTER 2024-07-21 07:44 | Outpatient (CLI) | payer OTHER, SELFPAY ==
--- NOTE | 2024-07-21 07:48 | EST_ITS ---
Patient Info Name: Olivia Reynoso Age: 54 years : 1970 Gender: Female Ht: 72 in Wt: 237 lbs BSA: 2.37 m2 HR: 69 bpm BP: 116 / 65 mmHg Exam Date: 07/21/2024 7:59 AM Exam Location: [facility] Patient Status: Outpatient Admit Date: 07/21/2024 Staff Ordering Physician: Heaven Ross PA-C Attending Provider: Heaven Ross PA-C Exercise Technologist: Jovanna Priest LEIGHANN Exercise Physician: Mark Villegas DO Exam Type: CA stress test treadmill Study Info A treadmill exercise stress test was performed. Summary 1. 1. Negative Gideon exercise stress test for ischemic ST changes by ECG criteria. 2. 2. Reduced functional capacity, achieving 7 METs of workload. 3. 3. Appropriate HR response to exercise. 4. 4. Appropriate HR recovery at 1 minute post exercise. 5. 5. No imaging with stress testing. 6. 6. Patient informed of the above results. Protocol: Gideon Stress ECG Details Stage: REST Duration (min): 1 min : 31 sec Speed (mph): 0.0 Grade (%): 0 HR (bpm): 68 SBP (mmHg): 116 DBP (mmHg): 65 METS: --- Stage: REST Duration (min): 5 min : 35 sec Speed (mph): 0.0 Grade (%): 0 HR (bpm): 85 SBP (mmHg): 116 DBP (mmHg): 65 METS: --- Stage: STAGE 1 Duration (min): 1 min : 0 sec Speed (mph): 1.7 Grade (%): 10 HR (bpm): 124 SBP (mmHg): 116 DBP (mmHg): 65 METS: --- Stage: STAGE 1 Duration (min): 2 min : 0 sec Speed (mph): 1.7 Grade (%): 10 HR (bpm): 134 SBP (mmHg): 116 DBP (mmHg): 65 METS: --- Stage: STAGE 1 Duration (min): 3 min : 0 sec Speed (mph): 1.7 Grade (%): 10 HR (bpm): 142 SBP (mmHg): 147 DBP (mmHg): 73 METS: --- Stage: STAGE 2 Duration (min): 1 min : 0 sec Speed (mph): 2.5 Grade (%): 12 HR (bpm): 154 SBP (mmHg): 147 DBP (mmHg): 73 METS: --- Stage: STAGE 2 Duration (min): 1 min : 30 sec Speed (mph): 2.5 Grade (%): 12 HR (bpm): 158 SBP (mmHg): 147 DBP (mmHg): 73 METS: --- Stage: RECOVERY Duration (min): 0 min : 29 sec Speed (mph): 0.0 Grade (%): 0 HR (bpm): 154 SBP (mmHg): 163 DBP (mmHg): 78 METS: --- Stage: RECOVERY Duration (min): 1 min : 29 sec Speed (mph): 0.0 Grade (%): 0 HR (bpm): 117 SBP (mmHg): 163 DBP (mmHg): 78 METS: --- Stage: RECOVERY Duration (min): 2 min : 29 sec Speed (mph): 0.0 Grade (%): 0 HR (bpm): 94 SBP (mmHg): 163 DBP (mmHg): 78 METS: --- Stage: RECOVERY Duration (min): 3 min : 29 sec Speed (mph): 0.0 Grade (%): 0 HR (bpm): 89 SBP (mmHg): 132 DBP (mmHg): 85 METS: --- Stage: RECOVERY Duration (min): 4 min : 29 sec Speed (mph): 0.0 Grade (%): 0 HR (bpm): 92 SBP (mmHg): 127 DBP (mmHg): 83 METS: --- Stage: RECOVERY Duration (min): 5 min : 8 sec Speed (mph): 0.0 Grade (%): 0 HR (bpm): 93 SBP (mmHg): 127 DBP (mmHg): 83 METS: --- Rest HR: 85 bpm Peak HR: 158 bpm Rest
== END 2024-07-21 07:45 | disposition home or self-care (01) ==
PROVIDERS: PCP Family Medicine; Visit Provider Physician Assistant Medical
DX: R07.9 Chest pain, unspecified (principal)
CPT/HCPCS: 93017

== ENCOUNTER 2024-10-14 11:55 | Outpatient (CLI) | payer OTHER, SELFPAY ==
--- NOTE | ~2024-10-14 | MM_ITS ---
EXAMINATION: MM screening any BI w jennifer HISTORY: Screening mammogram TECHNIQUE: Craniocaudal and mediolateral oblique 3-D tomosynthesis images were obtained and synthetic 2-D images were generated. CAD analysis was submitted and interpreted. COMPARISON: 05/14/2023 BREAST PARENCHYMAL COMPOSITION:Not Dense. The breasts are almost entirely fatty FINDINGS: No suspicious mass, calcification, or architectural distortion are identified in either justin ast to suggest malignancy. There has been no suspicious interval change. IMPRESSION: No mammographic evidence of malignancy. Recommend routine screening mammography in one year. BI-RADS Category 1: Negative Reviewed, dictated and finalized at location . 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
== END 2024-10-14 11:56 | disposition home or self-care (01) ==
LOC: MICIMG 11:56
PROVIDERS: PCP Family Medicine; Visit Provider Obstetrics & Gynecology Gynecology
DX: Z12.31 Encounter for screening mammogram for malignant neoplasm of breast (principal)
CPT/HCPCS: 77063; 77067

== ENCOUNTER 2024-11-19 13:25 | Outpatient (CLI) | payer OTHER, SELFPAY ==
--- NOTE | ~2024-11-19 | XR_ITS ---
Right foot Technique: AP, oblique, and lateral views were obtained. Clinical History: Pain Findings: No acute fracture or dislocation is seen. Osseous alignment is anatomic. There is moderate degenerative change of the first MTP joint. Soft tissues are unremarkable. 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 Reviewed, dictated and finalized at [facility]. 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
== END 2024-11-19 13:26 | disposition home or self-care (01) ==
PROVIDERS: Visit Provider Family Medicine
DX: M19.071 Primary osteoarthritis, right ankle and foot (principal)
CPT/HCPCS: 73630

== ENCOUNTER 2025-02-02 12:02 | Outpatient (CLI) | payer OTHER, SELFPAY ==
[2025-02-02 12:35] LABS: Add Urine Microscopic? YES; Appearance Urine Clear (Clear); Bacteria Urine None Seen /hpf; Bilirubin Urine Negative (Negative); Blood Urine Trace (Negative); Color Urine Yellow (Yellow); Glucose Urine UA Negative (Negative); Ketones Urine Negative (Negative); Leukocyte Esterase Ur Negative LEU/UL (Negative); Nitrate Urine Negative (Negative); Non Pathogenic Casts 0-2; Protein Urine Negative (Negative); RBC Urine 0-2 /hpf (0-2); Specific Grav Ur 1.014 (1.001-1.035); Squamous Epithelial Cell Urine None Seen /hpf (Few); Urobilinogen Urine 0.2 mg/dL (<2.0); WBC Urine 0-5 /hpf (0-3); pH Urine 5.5 (5.0-9.0)
== END 2025-02-02 12:03 | disposition home or self-care (01) ==
LOC: ANHLAB 12:04
PROVIDERS: Visit Provider Student in an Organized Health Care Education/Training Program
DX: R82.90 Unspecified abnormal findings in urine (principal)
CPT/HCPCS: 81001

== ENCOUNTER 2025-02-04 09:07 | Outpatient (CLI) | payer OTHER, SELFPAY ==
--- NOTE | ~2025-02-04 | CT_ITS ---
EXAMINATION: CT abdomen pelvis wo con DATE: 02/04/2025 09:32 INDICATION: Right lower quadrant abdominal pain TECHNIQUE: Computed tomography (CT) of the abdomen and pelvis was performed without intravenous contr ast. Automated exposure control and iterative reconstruction technique were employed. The dose-length product was 805.83 mGy-cm. COMPARISON: None FINDINGS: Mild atelectasis at the lung bases. Heart size is normal. No pericardial or pleural effusion. Small s liding-type hiatal hernia. Indeterminate 3 cm hypodense mass in the right hepatic lobe. Gallbladder, spleen, pancreas, bilateral adrenal glands and kidneys are normal. No urolithiasis or hydronephrosis. Moderate to large amount stool scattered throughout the colon small bowel and appendix are normal. B ladder and uterus are normal. Likely tubal ligation rings at the bilateral adnexa with otherwise unre markable ovaries. No free intraperitoneal gas or fluid. No pathologically enlarged abdominal or pelvi c lymphadenopathy. Moderate lumbar and lower thoracic spondylosis. Chronic likely physiologic mild an terior wedging at T12, minimal at T11 and L1. IMPRESSION: 1. Indeterminate 3 cm mass in the right hepatic lobe. In the absence of known liver disease or primar y malignancy this is more likely benign than malignant but would recommend further evaluation with pr e and postcontrast MRI or CT. 2. Moderate to large amount of colonic stool which can be seen in the same constipation. No other acu te intra-abdominal/pelvic process with normal appendix. Reviewed, dictated and finalized at location L. OPERATOR IMPRESSION: 1. Indeterminate 3 cm mass in the right hepatic lobe. In the absence of known l iver disease or primary malignancy this is more likely benign than malignant bu t would recommend further evaluation with pre and postcontrast MRI or CT. 2. Moderate to large amount of colonic stool which can be seen in the same cons tipation. No other acute intra-abdominal/pelvic process with normal appendix.
--- OUTSIDE RECORDS SUMMARY | 2025-02-04 09:57 | XMS_ITS | Referral Summary ---
Author Organization [facility] Address [address] [place] [phone] Care Team Providers Care Felling Machine Operator Name Role Phone Claudio Alberts MD Primary Care Provider Barrett Buenrostro MD Unavailable [phone] Encounters Date Type Department Care Team Description 02/04/2025 Results Follow-Up [facility] [address] [place] [phone] Bhavani Mullins PA 12/14/2024 Telephone [facility] [address] [place] [phone] Mary Ann Jeronimo from Last 3 Months Allergies Active Allergy Reactions Criticality Noted Date Comments Gadolinium-Containing Contrast Media Unknown 10/17/2017 Iodinated Contrast Media Anaphylaxis High 02/23/2020 Medications Lactobacillus acidophilus (PROBIOTIC ORAL) Take by mouth Active elderberry fruit-honey 0.7-3 gram/7.5 mL liquid Take by mouth Active cholecalciferol (Vitamin D3) 5,000 unit tablet Active ferrous sulfate (SLOW RELEASE IRON ORAL) Take by mouth Activ e albuterol HFA (PROVENTIL HFA,VENTOLIN HFA,PROAIR HFA) 90 mcg/actuation inhaler 1 INHALATION EVERY 4 HOURS NEEDED FOR SHORTNESS OF BREATH OR WHEEZING 2 Active escitalopram (LEXAPRO) 10 mg tablet Take 10 mg by mouth daily 2 Active hydrOXYzine (ATARAX) 25 mg tablet Take 1-2 tablets by mouth 4 (four) times a day as needed 2 Active levothyroxine (SYNTHROID) 75 mcg tablet Take 75 mcg by mouth daily 2 Active vitamin B complex/folic acid (B COMPLEX 100 ORAL) Take 1 tablet by mouth daily Active umeclidinium-mustapha anteroL (ANORO ELLIPTA) 62.5-25 mcg/actuation blister with device Inhale daily Active adalimumab (Humira,CF, Pen) 40 mg/0.4 mL pen injector kit Inject 0.4 mL (40 mg total) under the skin every 14 (fourteen) days 2 each 5 4 Active oxaprozin (DAYPRO) 600 mg tabletIndication s:Osteoarthritis Take 2 tablets (1,200 mg total) by mouth daily as needed (pain) 60 tablet 2 4 01/08/20 25 Active Problems Problem Noted Date Diagnosed Date Positive GAVINO (antinuclear antibody) 05/03/2022 Assessment & Plan (10/01/2022 9:27 AM CDT): +GAVINO, TPO, and TG ab consistent with hx of Domitila's. AVISE was unremarkable for any other autoantibodies. Assessment & Plan (05/03/2022 4:21 PM CDT): +GAVINO, TPO, and TG ab consistent with hx of Domitila's. AVISE was unremarkable for any other autoantibodies. Osteoarthritis of both feet 05/03/2022 Overview (10/31/2023): XR 04/23/22: L foot: chronic flattening of head of 2nd metatarsal consistent with osteonecrosis (Freiberg's infraction). Mild OA of 1st MTP joint. Enthesophyte at plantar aspect of calcaneal tuberosity. R foot: mild hallux valgus. Feiber's infraction. Severe OA of 1st MTP and mild OA of talonavicular joint. Enthesophyte at plantar aspect of calcaneal tuberosity. Assessment & Plan (10/16/2024 1:44 PM RADIUS CORNER MACHINE OPERATOR): Diagnosed with stress fractures and was seen by podiatry Dr. Espinoza. Wore a boot for several months until pain improved. Now seeing podiatry PRN. Assessment & Plan (04/30/2024 9:52 AM CDT): Diagnosed with stress fractures and was seen by podiatry Dr. Espinoza. Wore a boot for several months until pain improved. Now seeing podiatry PRN. Assessment & Plan (10/31/2023 9:04 AM RADIUS CORNER MACHINE OPERATOR): XR revealed midfoot OA bilaterally. Notes improvement with supportive shoes (Hoka) and humira. No benefit with meloxicam so changed to diclofenac 75mg BID PRN. Has seen podiatry in the past. Recent c/o pain in the right midfoot and XR (10/2023) was concerning for possible nondisplaced fracture of the 2nd metatarsal so is now in a walking boot. Previous XR (2021) showed changes at this areas consistent with Freiberg's infraction (osteonecrosis). Recommend further evaluation/management by podiatry. Provided names of a few podiatrists. Assessment & Plan (05/29/2023 10:01 AM CDT): XR revealed midfoot OA bilaterally. Notes improvement with supportive shoes (Hoka) and humira. No benefit with meloxicam so changed to diclofenac 75mg BID PRN. Has seen podiatry in the past but could consider re-evaluation if NSAIDs and tx for do not improve her pain. Assessment & Plan (12/31/2022 9:52 AM RADIUS CORNER MACHINE OPERATOR): XR revealed midfoot OA bilaterally. Notes improvement with supportive shoes (Hoka) and humira. No benefit with meloxicam so changed to diclofenac 75mg BID. Has seen podiatry in the past but could consider re-evaluation if NSAIDs and tx for do not improve her pain. Assessment & Plan (10/01/2022 9:23 AM CDT): XR revealed midfoot OA bilaterally. Notes improvement with supportive shoes (Hoka) and humira. No benefit with meloxicam so changed to diclofenac 75mg BID. Has seen podiatry in the past but could consider re-evaluation if NSAIDs and tx for do not improve her pain. Assessment & Plan (07/05/2022 10:40 AM CDT): XR revealed midfoot OA bilaterally. Currently on meloxicam 15mg daily without much benefit. Has seen podiatry in the past but could consider re-evaluation if NSAIDs and tx for do not improve her pain. Will stop meloxicam and change to diclofenac 75mg BID. Assessment & Plan (05/03/2022 4:33 PM CDT): XR revealed midfoot OA bilaterally. Currently on meloxicam 15mg daily without much benefit. Consider changing to different NSAIDs vs referral to podiatry in the future. jail current use of therapeutic drug 2021 Overview (05/07/2022): TSPOT negative: 05/2022 Assessment & Plan (10/16/2024 1:43 PM RADIUS CORNER MACHINE OPERATOR): Hepatitis negative: 04/2022 TSPOT negative: 05/2022 Assessment & Plan (04/30/2024 9:28 AM CDT): Hepatitis negative: 04/2022 TSPOT negative: 05/2022 Assessment & Plan (10/31/2023 9:00 AM RADIUS CORNER MACHINE OPERATOR): Hepatitis negative: 04/2022 TSPOT negative: 05/2022 Assessment & Plan (05/29/2023 9:46 AM CDT): Hepatitis negative: 04/2022 TSPOT negative: 05/2022 Assessment & Plan (12/31/2022 9:51 AM RADIUS CORNER MACHINE OPERATOR): Hepatitis negative: 04/2022 TSPOT negative: 05/2022 Assessment & Plan (10/01/2022 9:22 AM CDT): Hepatitis negative: 04/2022 TSPOT negative: 05/2022 Assessment & Plan (07/05/2022 10:43 AM CDT): Hepatitis negative: 04/2022 TSPOT negative: 05/2022 Assessment & Plan (05/03/2022 4:34 PM CDT): Hepatitis negative: 04/2022 Check TSPOT today. Rash 05/03/2022 Assessment & Plan (05/03/2022 4:38 PM CDT): Started 12/2021 across her brow ridge and resolves with steroids. Triggered by stress and is painful/burning. Denies personal or FHx of psoriasis. Recent AVISE was unremarkable for any serologies associated with a CTD but the rest of our work up was remarkable for ankylosing spondylitis. Could consider having her see dermatology and if rash would be consistent with psoriasis, then more likely her diagnosis is actually psoriatic arthritis. Ankylosing spondylitis of sacral region 04/23/20 Overview (06/19/2023): Labs (04/23/22): ALT 55, cbc wnl, ESR 9, CRP 1.2 06/14/23: +GAVINO 1:80 homogenous, GAVINO mitotic, intercellular bridge. Histone <1.0, dsDNA <1, SM ab <1.0, SM/LUBRICATING MACHINE TENDER ab <1.0, LUBRICATING MACHINE TENDER ab M<1.0, chromatin ab <1.0, SSA/B <1.0, scl-70 <1.0, neftali-1 <1.0, centromere B ab <1.0, RibP <1.0 AVISE (04/23/22): +GAVINO 1:160 homogenous, anti-TG (75), anti-TPO (95) Hepatitis negative: 04/2022 US Right hand/wrist 04/26/22: Moderate synovial thickening of the wrist with grade 1 power Doppler; radial scaphoid joint (grade 2) Grade 1 effusion of the ulnar styloid Moderate synovial thickening of the 2nd PIPJ Marked synovial thickening of the 3rd PIPJ with trace effusion 2nd and 3rd DIP joints were unremarkable XR 04/23/22: L foot: chronic flattening of head of 2nd metatarsal consistent with osteonecrosis (Freiberg's infraction). Mild OA of 1st MTP joint. Enthesophyte at plantar aspect of calcaneal tuberosity. R foot: mild hallux valgus. Feiber's infraction. Severe OA of 1st MTP and mild OA of talonavicular joint. Enthesophyte at plantar aspect of calcaneal tuberosity. B/l hands: normal SI joints: erosions along inferior aspect of iliac sides of b/l sacral joints suspicious for inflammatory arthritis. Assessment & Plan (10/16/2024 1:58 PM RADIUS CORNER MACHINE OPERATOR): Moderate cdai. Initially c/o +GAVINO 1:640 homogenous pattern w/ new onset facial rash across the brow ridge that is painful/burning and triggered by stress (photosensitivity w/ retinol cream). She has no formal diagnosis or FHx of psoriasis. Also c/o chronic joint pain involving the bilateral hands and feet that improves with activity and systemic steroids. XR revealed erosive changes along the SI joints consistent with an inflammatory arthritis, most likely ankylosing spondylitis at this time. Due to erosive changes of the SI joints on XR, we started humira 40mg SQ [id number] with overall benefit of SI joint and peripheral joint pain. Continue humira 40mg [id number] and oxaprozin 600mg BID PRN pain. Routine labs today. Follow up in 6 months. Sooner if needed. Due to burden of disease, will administer kenalog 100 mg IM injection, in office, today. Assessment & Plan (04/30/2024 9:54 AM CDT): Low cdai. Initially c/o +GAVINO 1:640 homogenous pattern w/ new onset facial rash across the brow ridge that is painful/burning and triggered by stress (photosensitivity w/ retinol cream). She has no formal diagnosis or FHx of psoriasis. Also c/o chronic joint pain involving the bilateral hands and feet that improves with activity and systemic steroids. XR revealed erosive changes along the SI joints consistent with an inflammatory arthritis, most likely ankylosing spondylitis at this time. Due to erosive changes of the SI joints on XR, we started humira 40mg SQ [id number] with overall benefit of SI joint and peripheral joint pain. Continue humira 40mg [id number] and oxaprozin 600mg BID PRN pain. Routine labs today. Follow up in 4-6 months. Sooner if needed. Assessment & Plan (10/31/2023 9:02 AM RADIUS CORNER MACHINE OPERATOR): Low cdai. Initially c/o +GAVINO 1:640 homogenous pattern w/ new onset facial rash across the brow ridge that is painful/burning and triggered by stress. She has no formal diagnosis or FHx of psoriasis. Also c/o chronic joint pain involving the bilateral hands and feet that improves with activity and systemic steroids. Rheumatological work up revealed mild inflammatory findings in the R hand/wrist, and XR revealed erosive changes along the SI joints consistent with an inflammatory arthritis, most likely ankylosing spondylitis at this time. XR b/l feet also showed enthesophytes bilaterally which can be associated with a spondyloarthritis. Facial rash is nonspecific for psoriasis at this time and she notes photosensitivity likely related to face cream with retinol. Due to erosive changes of the SI joints on XR, we started humira 40mg SQ [id number] with overall benefit of SI joint and peripheral joint pain. Continue humira 40mg [id number] and diclofenac 75mg BID for OA pain in the b/l feet but may also provide benefit for inflammatory pain from . Routine labs today. Follow up in 4-6 months. Sooner if needed. Assessment & Plan (05/29/2023 10:05 AM CDT): Low cdai. Initially c/o +GAVINO 1:640 homogenous pattern w/ new onset facial rash across the brow ridge that is painful/burning and triggered by stress. She has no formal diagnosis or FHx of psoriasis. Also c/o chronic joint pain involving the bilateral hands and feet that improves with activity and systemic steroids. Rheumatological work up revealed mild inflammatory findings in the R hand/wrist, and XR revealed erosive changes along the SI joints consistent with an inflammatory arthritis, most likely ankylosing spondylitis at this time. XR b/l feet also showed enthesophytes bilaterally which can be associated with a spondyloarthritis. Facial rash is nonspecific for psoriasis at this time but could have her see dermatology for further evaluation. Due to erosive changes of the SI joints on XR, we started humira 40mg SQ [id number] with overall benefit of SI joint and peripheral joint pain. Continue humira 40mg [id number] and diclofenac 75mg BID for OA pain in the b/l feet but may also provide benefit for inflammatory pain from . Recent labs reviewed with patient. Follow up in 4-6 months. Sooner if needed. Assessment & Plan (12/31/2022 9:52 AM RADIUS CORNER MACHINE OPERATOR): C/o +GAVINO 1:640 homogenous pattern w/ new onset facial rash across the brow ridge that is painful/burning and triggered by stress. She has no formal diagnosis or FHx of psoriasis. Also c/o chronic joint pain involving the bilateral hands and feet that improves with activity and systemic steroids. Rheumatological work up revealed mild inflammatory findings in the R hand/wrist, and XR revealed erosive changes along the SI joints consistent with an inflammatory arthritis, most likely ankylosing spondylitis at this time. XR b/l feet also showed enthesophytes bilaterally which can be associated with a spondyloarthritis. Facial rash is nonspecific for psoriasis at this time but could have her see dermatology for further evaluation. Due to erosive changes of the SI joints on XR, we started humira 40mg SQ [id number] with overall benefit of SI joint and peripheral joint pain. Continue humira 40mg [id number] and diclofenac 75mg BID for OA pain in the b/l feet but may also provide benefit for inflammatory pain from . Routine labs today. Follow up in 4-6 months. Sooner if needed. Assessment & Plan (10/01/2022 9:26 AM CDT): C/o +GAVINO 1:640 homogenous pattern w/ new onset facial rash across the brow ridge that is painful/burning and triggered by stress. She has no formal diagnosis or FHx of psoriasis. Also c/o chronic joint pain involving the bilateral hands and feet that improves with activity and systemic steroids. Rheumatological work up revealed mild inflammatory findings in the R hand/wrist, and XR revealed erosive changes along the SI joints consistent with an inflammatory arthritis, most likely ankylosing spondylitis at this time. XR b/l feet also showed enthesophytes bilaterally which can be associated with a spondyloarthritis. Facial rash is nonspecific for psoriasis at this time but could have her see dermatology for further evaluation. Due to erosive changes of the SI joints on XR, we started humira 40mg SQ [id number] with overall benefit of SI joint and peripheral joint pain. Due to burden of disease, will administer kenalog 100 mg IM injection, in office, today. Continue humira 40mg [id number] and diclofenac 75mg BID for OA pain in the b/l feet but may also provide benefit for inflammatory pain from . Encouraged to get routine labs which were ordered at last visit. Follow up in 2-3 months. Sooner if needed. Assessment & Plan (07/05/2022 10:42 AM CDT): C/o +GAVINO 1:640 homogenous pattern w/ new onset facial rash across the brow ridge that is painful/burning and triggered by stress. She has no formal diagnosis or FHx of psoriasis. Also c/o chronic joint pain involving the bilateral hands and feet that improves with activity and systemic steroids. Rheumatological work up revealed mild inflammatory findings in the R hand/wrist, and XR revealed erosive changes along the SI joints consistent with an inflammatory arthritis, most likely ankylosing spondylitis at this time. XR b/l feet also showed enthesophytes bilaterally which can be associated with a spondyloarthritis. Facial rash is nonspecific for psoriasis at this time but could have her see dermatology for further evaluation. Due to erosive changes of the SI joints on XR, we started humira 40mg SQ [id number] and she has had 3 injections so far with overall benefit of SI joint pain. Will give humira more time to reach full effectiveness. Starting diclofenac 75mg BID for OA pain in the b/l feet but may also provide benefit for inflammatory pain from . Routine labs today. Follow up in 3 months. Sooner if needed. Assessment & Plan (05/03/2022 4:32 PM CDT): C/o +GAVINO 1:640 homogenous pattern w/ new onset facial rash across the brow ridge that is painful/burning and triggered by stress. She has not formal diagnosis or FHx of psoriasis. Also c/o chronic joint pain involving the bilateral hands and feet that improves with activity and systemic steroids which is suspicious for an inflammatory arthritis. Rheumatological work up reveals mild inflammatory findings in the R hand/wrist, and XR revealed erosive changes along the SI joints consistent with an inflammatory arthritis, most likely ankylosing spondylitis at this time. XR b/l feet also showed enthesophytes bilaterally which can be associated with a spondyloarthritis. Facial rash is nonspecific for psoriasis at this time but could have her see dermatology for further evaluation. Due to erosive changes of the SI joints on XR, will start approval of humira 40mg SQ [id number]. Patient advised of the side effects of the medication, including but not limited to increased risk of infection, rash, injection site reaction. Patient provided informational handouts about the medication and . Will need to check TSPOT today as well. Will give prednisone 20mg tapering by 5mg every 4 days to alleviate pain until she is able to start humira. Follow up in 2 months. Sooner if needed. Assessment & Plan (04/23/2022 9:49 AM CDT): 51-year-old female with PMHx of Domitila's thyroiditis, asthma, anemia, migraines, and depression/anxiety c/o +GAVINO 1:640 homogenous pattern w/ new onset facial rash across the brow ridge that is painful/burning and triggered by stress. Denies photosensitivity. Also c/o chronic joint pain involving the bilateral hands and feet that improves with activity and systemic steroids which is suspicious for an inflammatory arthritis. Denies personal or Fhx of psoriasis or IBD but does c/o chronic low back pain since she was a child however notes hx of scoliosis. Will get XR SI to further evaluate for sacroiliitis. Symptoms and exam are suspicious for possible RA vs spondyloarthritis vs CTD. Will order appropriate serologies, radiographs, and a right hand/wrist US to further evaluate. Follow up in 2 weeks. Sooner if needed. Seen with Dr. Buenrostro. VAZQUEZ (dyspnea on exertion) 04/23/2022 Overview (07/05/2022): PFT 04/25/22: normal. FEV1/FVC 81%. DLCO 76% Assessment & Plan (07/05/2022 10:45 AM CDT): PFT 04/25/22: normal. FEV1/FVC 81%. DLCO 76% Improved with albuterol and Anoro Ellipta. Assessment & Plan (05/03/2022 4:22 PM CDT): Improved with albuterol and Anoro Ellipta. PFT reportedly normal and will request this for further review. Assessment & Plan (04/23/2022 9:50 AM CDT): Currently using albuterol and Anoro Ellipta. Had CXR and awaiting CT chest approval from insurance per PCP. Will order PFT. Neutropenia 02/24/2020 Immunizations Immunization Administration Dates Next Due Influenza, Quadrivalent, Split, Intramuscular Influenza, Quadrivalent, Spl it, Preservative Free, Intramuscular 11/26/2019 Influenza, Trivalent, IM (MDV) 09/14/2015 Social History Tobacco Use Types Packs/Day Years Used Date Smoking Tobacco: Never Smokeless Tobacco: Never Alcohol Use Standard Drinks/Week Comments Not Currently 0 (1 standard drink = 0.6 oz pur e alcohol) AUDIT-C Answer Date Recorded Q1: How often do you have a drink containing alc ohol? 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 Not on file Not on file Not on file Last Filed Vital Signs Vital Sign Reading Time Taken Comments Blood Pressure 112/66 10/16/2024 1:43 PM RADIUS CORNER MACHINE OPERATOR Pulse 103 10/16/2024 1:43 PM RADIUS CORNER MACHINE OPERATOR Temperature 36.6 C (97.9 F) 02/23/2020 3:59 PM CDT Respiratory Rate 16 02/23/2020 3:59 PM CDT Oxygen Saturation 97% 10/16/2024 1:43 PM RADIUS CORNER MACHINE OPERATOR Inhaled Oxygen Concentration - - Weight 99.5 kg (219 lb 6.4 oz) 10/16/2024 1:43 P M RADIUS CORNER MACHINE OPERATOR Height 182.9 cm (6') 10/16/2024 1:43 PM RADIUS CORNER MACHINE OPERATOR Body Mass Index 29.76 10/16/2024 1:43 PM RADIUS CORNER MACHINE OPERATOR Plan of Treatment Not on file Procedures Procedure Name Priority Date/Time Associated Diagnosis Comments CRP (ACUTE PHASE) Routine 02/03/2025 10: 26 AM RADIUS CORNER MACHINE OPERATOR Ankylosing spondylitis of sacral region (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 ERYTHROCYTE SEDIMENTATION RATE Routine 02/03/2025 10:26 AM RADIUS CORNER MACHINE OPERATOR Ankylosing spondylitis of sacral region (HCC) jail current use of therapeutic drug CBC WITH AUTO DIFFERENTIAL Routine 02/03/2025 10:26 AM RADIUS CORNER MACHINE OPERATOR Ankylosing spondylitis of sacral region (HCC) jail current use of therapeutic drug COMPREHENSIVE METABOLIC PANEL Routine 02/03/2025 10:26 AM RADIUS CORNER MACHINE OPERATOR Ankylosing spondylitis of sacral region (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 HEPATITIS PANEL, ACUTE Routine 9:50 AM CDT Polyarthralgia Positive GAVINO (antinuclear antibody) Fatigue, unspecified type from Last 3 Months or Most Recently Relevant to Health Maintenance Results * CBC with auto differential (02/03/2025 10:26 AM RADIUS CORNER MACHINE OPERATOR) Pathologist [facility] WBC 5.8 3.8 - 10.8 Thousand/u L [facility] RBC, POC 5.03 3.80 - 5.10 Million/uL [facility] Hgb 15.5 11.7 - 15.5 g/dL [facility] Hct 44.9 35.0 - 45.0 % [facility] MCV 89.3 80.0 - 100.0 fL [facility] MCH 30.8 27.0 - 33.0 pg [facility] MCHC 34.5 32.0 - 36.0 g/dL [facility] Comment: For adults, a slight decrease in the calculated MCHC value (in the range of 30 to 32 g/dL) is most likely not clinically significant; however, it should be interpreted with caution in correlation with other red cell parameters and the patient's clinical condition. Rdw 14.4 11.0 - 15.0 % [facility] Platelets 249 140 - 400 Thousand/u L [facility] MPV 11.8 7.5 - 12.5 fL [facility] Neutrophils, abs 3,265 1,500 - 7,800 cells/uL [facility] Lymphocytes, abs 1,966 850 - 3,900 cells/uL [facility] Monocyte abs 458 200 - 950 cells/uL [facility] Eosinophils, abs 93 15 - 500 cells/uL [facility] Basophils, abs 17 0 - 200 cells/uL [facility] Neutrophils 56.3 % [facility] Lymphocyte pct 33.9 % [facility] Monocytes 7.9 % [facility] Eosinophils 1.6 % [facility] Basophils 0.3 % [facility] Blood 02/03/2025 10:2 6 AM RADIUS CORNER MACHINE OPERATOR 02/03/2025 10:27 AM RADIUS CORNER MACHINE OPERATOR Bhavani ALLEN LAB BLOOD ORDERABLES Final Result Performing Organization Address [facility] de Phone Number [facility] [address] [place] [address] * Erythrocyte sedimentation rate (02/03/2025 10:26 AM RADIUS CORNER MACHINE OPERATOR) Erythrocyte sedimentation rate 6 < OR = 30 mm/h [facility] Blood 02/03/2025 10:2 6 AM RADIUS CORNER MACHINE OPERATOR 02/03/2025 10:27 AM RADIUS CORNER MACHINE OPERATOR Bhavani ALLEN LAB BLOOD ORDERABLES Final Result Performing Organization Address [facility] de Phone Number [facility] [address] [place] [address] * CRP (acute phase) (02/03/2025 10:26 AM RADIUS CORNER MACHINE OPERATOR) C-RP <3.0 <8.0 mg/L [facility] Blood 02/03/2025 10:2 6 AM RADIUS CORNER MACHINE OPERATOR 02/03/2025 10:27 AM RADIUS CORNER MACHINE OPERATOR Bhavani ALLEN LAB BLOOD ORDERABLES Final Result Performing Organization Address [facility] de Phone Number [facility] [address] [place] [address] * (ABNORMAL) Comprehensive metabolic panel (02/03/2025 10:26 AM RADIUS CORNER MACHINE OPERATOR) Glucose 83 65 - 99 mg/dL [facility] Comment: Fasting reference interval BUN 28(H) 7 - 25 mg/dL [facility] Creatinine 0.73 0.50 - 1.03 mg/dL [facility] eGFR 98 > OR = 60 mL/min/1.7 3m2 [facility] BUN/creat ratio 38(H) 6 - 22 (calc) [facility] Sodium 138 135 - 146 mmol/L [facility] Potassium, pl 4.0 3.5 - 5.3 mmol/L [facility] Chloride 103 98 - 110 mmol/L [facility] CO2 28 20 - 32 mmol/L [facility] Calcium 9.1 8.6 - 10.4 mg/dL [facility] Protein, sr 6.8 6.1 - 8.1 g/dL [facility] Albumin 4.6 3.6 - 5.1 g/dL [facility] GLOBULIN 2.2 1.9 - 3.7 g/dL (calc) [facility] Alb/glob ratio 2.1 1.0 - 2.5 (calc) [facility] Bilirubin, total 0.6 0.2 - 1.2 mg/dL [facility] Alk phos 63 37 - 153 U/L [facility] AST 14 10 - 35 U/L [facility] ALT (SGPT) 14 6 - 29 U/L [facility] Blood 02/03/2025 10:2 6 AM RADIUS CORNER MACHINE OPERATOR 02/03/2025 10:27 AM RADIUS CORNER MACHINE OPERATOR us Bhavani ALLEN LAB BLOOD ORDERABLES Final Result [facility] [address] [place] [address] * Hepatitis panel, acute (04/23/2022 9:50 AM CDT) Hep A IgM NON-REACTI VE NON-REACT OLAMIDE [facility] Comment: For additional information, please refer to http://Zadspace.Kupu [place]/faq/ISY776 (This link is being provided for informational/ educational purposes only.) HepBsAg NON-REACTI VE NON-REACT OLAMIDE [facility] Hep B core IgM NON-REACTI VE NON-REACT OLAMIDE [facility] Hep C Ab NON-REACTI VE NON-REACT OLAMIDE [facility] SIGNAL TO CUT-OFF 0.02 <1.00 [facility] Comment: HCV antibody was non-reactive. There is no laboratory evidence of HCV infection. In most cases, no further action is required. However, if recent HCV exposure is suspected, a test for HCV RNA (test code 51886) is suggested. For additional information please refer to http://Zadspace.Kupu [place]/faq/UXI64c9 (This link is being provided for informational/ educational purposes only.) Blood specimen (specimen) 04/23/2022 9:50 AM CDT 04/23/2022 9:51 AM CDT Bhavani ALLEN LAB MICROBIOLOGY - NERAL ORDERABLES Final Result [facility] [address] [place] [address] from Last 3 Months or Most Recently Relevant to Health Maintenance [place] [place] [address] [facility] [employer] CHO[employer] PLUS Care Teams Felling Machine Operator Relationship Specialty Start Date End Date Claudio Alberts MD [address] [place] [address] PCP - General Family Medicine 04/12/22 Barrett Buenrostro MD [address] [place] [address] Consulting Physician Rheumatology 04/18/22
--- OUTSIDE RECORDS SUMMARY | 2025-02-04 09:58 | XMS_ITS | Clinical Summary ---
Author Organization [facility] Address [address] [facility] [place] [address] Care Team Providers Care Project Systems Engineer Name Role Phone Claudio Alberts MD Primary Care Provider [phone] Source Comments [facility],non-owned Affiliates and Associated Physician Practices is amultiple site organization consisting of ambulatory clinics and hospital sitesin [place], [place], [place] and [place]. This disclosure is being madepursuant to the Care Everywhere program and may not contain all information available regarding this patient. Last updated 18.[facility] Allergies Active Allergy Reactions Criticality Noted Date Comments Contrast-Gadolinium Agents For Mri 1 12/17/2016 Medications * Be aware that medications may not be up to date on this document. Alwaysverify current medications with the patient. Medication Sig Dispensed Refills Start Date End Date Status LEVOTHYROXINE SODIUM PO A ctive Albuterol Sulfate (PROAIR HFA IN) Active Fluticasone Propionate (FLONASE NA) Active Social History Tobacco Use Types Packs/Day Years Used Date Smoking Tobacco: Never Smokeless Tobacco: Never Sex and Gender Information Value Date Recorded Sex Assigned at Not on file Gender Identity Not on file Sexual Orientation Not on file Last Filed Vital Signs Vital Sign Reading Time Taken Comments Blood Pressure 96/68 10/17/2017 6:43 PM RELIGIOUS ASSISTANT Pulse 92 10/17/2017 6:43 PM RELIGIOUS ASSISTANT Temperature 36.8 C (98.2 F) 10/17/2017 6:43 PM RELIGIOUS ASSISTANT Respiratory Rate 16 10/17/2017 6:43 PM RELIGIOUS ASSISTANT Oxygen Saturation 98% 10/17/2017 6:43 PM RELIGIOUS ASSISTANT Inhaled Oxygen Concentration - - Weight 77.1 kg (170 lb) 10/17/2017 6:43 PM RELIGIOUS ASSISTANT Height 182.9 cm (6') 10/17/2017 6:43 PM RELIGIOUS ASSISTANT Body Mass Index 23.06 10/17/2017 6:43 PM RELIGIOUS ASSISTANT Plan of Treatment Health Maintenance Due Date Last Done Comments COLOGUARD (AGES 45-75) - COL ON CA SCREENING 1971 COLON MONITORING 1971 COLONOSCOPY - COLON CA SCREENING 1971 CT COLONOGRAPHY - COLON CA SCREENING 1971 Colorectal Cancer Screening 1971 FIT - COLON CA SCREENING 1971 FLEX SIG - COLON CA SCREENING 1971 LIPID TESTING 1971 MAMMOGRAM 1971 PAP SMEAR 1971 HIV SCREENING 1986 HEPATITIS C SCREENING 04/23/1989 DTAP/TDAP/TD VACCINES (1 - Tdap) 1990 HEPATITIS B VACCINE (1 of 3 - 19+ 3-dose series) 1990 PNEUMOCOCCAL VACCINE 50+ (1 of 1 - PCV) 2021 ZOSTER VACCINE (1 of 2) 2021 COVID-19 VACCINE (1 - 2023-2 5 season) 2024 INFLUENZA VACCINE (#1) 2024 DEPRESSION SCREENING 12/02/2024 HIB VACCINE Aged Out No longer eligi ble based on patient's age to complete this topic HPV VACCINE Aged Out No longer eligi ble based on patient's age to complete this topic MENINGOCOCCAL (Group B) VACCINE Aged Out No longer eligible based on patient's age to complete this topic MENINGOCOCCAL VACCINE Aged Out No gm jose alejandro eligible based on patient's age to complete this topic PNEUMOCOCCAL VACCINE Aged Out No long er eligible based on patient's age to complete this topic Care Teams Project Systems Engineer Relationship Specialty Start Date End Date Claudio Alberts MD [address] [place] [address] PCP - General Family Medicine 10/17/17
--- OUTSIDE RECORDS SUMMARY | 2025-02-04 09:58 | XMS_ITS | Referral Summary ---
Author Organization [facility] Address [address] [place] [address] Care Team Providers Care Technical Buyer Name Role Phone Claudio Alberts MD Primary Care Provider [phone] Source Comments [facility],non-owned Affiliates and Associated Physician Practices is amultiple site organization consisting of ambulatory clinics and hospital sitesin [place], [place], [place] and [place]. This disclosure is being madepursuant to the Care Everywhere program and may not contain all information available regarding this patient. Last updated 18.[facility] [employer] Network Allergies Active Allergy Reactions Criticality Noted Date [...] Comments Blood Pressure 96/68 10/17/2017 6:43 PM REAL ESTATE AGENCY LICENSEE Pulse 92 10/17/2017 6:43 PM REAL ESTATE AGENCY LICENSEE Temperature 36.8 C (98.2 F) 10/17/2017 6:43 PM REAL ESTATE AGENCY LICENSEE Respiratory Rate 16 10/17/2017 6:43 PM REAL ESTATE AGENCY LICENSEE Oxygen Saturation 98% 10/17/2017 6:43 PM REAL ESTATE AGENCY LICENSEE Inhaled Oxygen Concentration - - Weight 77.1 kg (170 lb) 10/17/2017 6:43 PM REAL ESTATE AGENCY LICENSEE Height 182.9 cm (6') 10/17/2017 6:43 PM REAL ESTATE AGENCY LICENSEE Body Mass Index 23.06 10/17/2017 6:43 PM REAL ESTATE AGENCY LICENSEE Plan of Treatment Not on file Care Teams Technical Buyer Relationship Specialty Start Date End Date Claudio Alberts MD [address] [place] [address] PCP - General Family Medicine 10/17/17
--- OUTSIDE RECORDS SUMMARY | 2025-02-04 09:58 | XMS_ITS | Clinical Summary ---
Author Organization [facility] Address [address] [place] [id number] Care Team Providers Care Machine Tool Operator Name Role Phone Claudio Alberts MD Primary Care Provider Barrett Buenrostro MD Unavailable [phone] Allergies Active Allergy Reactions Criticality Noted Date [...] tuberosity. Assessment & Plan (10/16/2024 1:44 PM BUS DRIVER SUPERVISOR): Diagnosed with stress fractures and was seen by podiatry Dr. Espinoza. Wore a boot for several months until pain improved. Now seeing podiatry PRN. Assessment & Plan (04/30/2024 9:52 AM CDT): Diagnosed with stress fractures and was seen by podiatry Dr. Espinoza. Wore a boot for several months until pain improved. Now seeing podiatry PRN. Assessment & Plan (10/31/2023 9:04 AM BUS DRIVER SUPERVISOR): XR revealed midfoot OA bilaterally. Notes improvement [...] pain. Assessment & Plan (12/31/2022 9:52 AM BUS DRIVER SUPERVISOR): XR revealed midfoot OA bilaterally. Notes improvement [...] vs referral to podiatry in the future. [facility] current use of therapeutic drug 2021 Overview (05/07/2022): TSPOT negative: 05/2022 Assessment & Plan (10/16/2024 1:43 PM BUS DRIVER SUPERVISOR): Hepatitis negative: 04/2022 TSPOT negative: 05/2022 Assessment & Plan (04/30/2024 9:28 AM CDT): Hepatitis negative: 04/2022 TSPOT negative: 05/2022 Assessment & Plan (10/31/2023 9:00 AM BUS DRIVER SUPERVISOR): Hepatitis negative: 04/2022 TSPOT negative: 05/2022 Assessment & Plan (05/29/2023 9:46 AM CDT): Hepatitis negative: 04/2022 TSPOT negative: 05/2022 Assessment & Plan (12/31/2022 9:51 AM BUS DRIVER SUPERVISOR): Hepatitis negative: 04/2022 TSPOT negative: 05/2022 Assessment [...] Histone <1.0, dsDNA <1, SM ab <1.0, SM/SOCIAL INSURANCE ADMINISTRATOR ab <1.0, SOCIAL INSURANCE ADMINISTRATOR ab M<1.0, chromatin ab <1.0, SSA/B <1.0, [...] arthritis. Assessment & Plan (10/16/2024 1:58 PM BUS DRIVER SUPERVISOR): Moderate cdai. Initially c/o +GAVINO 1:640 homogenous [...] on XR, we started humira 40mg SQ [id number] with overall benefit of SI joint and peripheral joint pain. Continue humira 40mg QUo6wjawy and oxaprozin 600mg BID PRN pain. Routine [...] on XR, we started humira 40mg SQ h5bheqt with overall benefit of SI joint and peripheral joint pain. Continue humira 40mg RJb5evldq and oxaprozin 600mg BID PRN pain. Routine labs today. Follow up in 4-6 months. Sooner if needed. Assessment & Plan (10/31/2023 9:02 AM BUS DRIVER SUPERVISOR): Low cdai. Initially c/o +GAVINO 1:640 homogenous [...] on XR, we started humira 40mg SQ e7dnips with overall benefit of SI joint and peripheral joint pain. Continue humira 40mg HBb6stpwp and diclofenac 75mg BID for OA pain [...] on XR, we started humira 40mg SQ t6mnmul with overall benefit of SI joint and peripheral joint pain. Continue humira 40mg MIh9zzdqs and diclofenac 75mg BID for OA pain in the b/l feet but may also provide benefit for inflammatory pain from . Recent labs reviewed with patient. Follow up in 4-6 months. Sooner if needed. Assessment & Plan (12/31/2022 9:52 AM BUS DRIVER SUPERVISOR): C/o +GAVINO 1:640 homogenous pattern w/ new [...] on XR, we started humira 40mg SQ t8gzlpe with overall benefit of SI joint and peripheral joint pain. Continue humira 40mg XTw1eoysf and diclofenac 75mg BID for OA pain [...] on XR, we started humira 40mg SQ d1klcys with overall benefit of SI joint and peripheral joint pain. Due to burden of disease, will administer kenalog 100 mg IM injection, in office, today. Continue humira 40mg KOs9cihhh and diclofenac 75mg BID for OA pain [...] on XR, we started humira 40mg SQ s3jmnxz and she has had 3 injections so [...] will start approval of humira 40mg SQ i2icush. Patient advised of the side effects of [...] Sooner if needed. Seen with Dr. Buenrostro. TAYLOR (dyspnea on exertion) 04/23/2022 Overview (07/05/2022): PFT [...] per PCP. Will order PFT. Neutropenia 02/24/2020 Encounters Date Type Department Care Team Description 02/04/2025 Results Follow-Up [facility] [address] [place] [phone] Bhavani Mullins PA 12/14/2024 Telephone [facility] [address] [place] [phone] Mary Ann Jeronimo from Last 3 Months Immunizations Immunization Administration Dates Next Due Influenza, Quadrivalent, Split, Intramuscular Influenza, Quadrivalent, Spl it, Preservative Free, Intramuscular 11/26/2019 Influenza, Trivalent, IM (MDV) 09/14/2015 Surgical History Surgery Date Site/Laterality Comments DILATION AND CURETTAGE OF UTERUS 01/02/2018 - 01/29/2018 FOOT SURGERY 07/02/2015 - 08/01/2015 TONSILLECTOMY AND ADENOIDECTOMY 12/02/1980 - 12/01/1981 TUBAL LIGATION Medical History Medical History Date Comments Anemia Asthma Thyroid disease Family History Medical History Relation Name Comments No Known Problems Father No Known Problems Mother Heart disease Paternal Grandfather Heart disease Paternal Grandmother Relation Name Status Comments Father Alive Mother Alive Paternal Grandfather Paternal Grandmother Social History Tobacco Use Types Packs/Day Years [...] on file Legal Sex Female 12:29 AM BUS DRIVER SUPERVISOR Gender Identity Not on file Sexual Orientation Not on file 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 Not on file Not on file Obstetrics History Last Filed Vital Signs Vital Sign Reading Time Taken Comments Blood Pressure 112/66 10/16/2024 1:43 PM BUS DRIVER SUPERVISOR Pulse 103 10/16/2024 1:43 PM BUS DRIVER SUPERVISOR Temperature 36.6 C (97.9 F) 02/23/2020 3:59 PM CDT Respiratory Rate 16 02/23/2020 3:59 PM CDT Oxygen Saturation 97% 10/16/2024 1:43 PM BUS DRIVER SUPERVISOR Inhaled Oxygen Concentration - - Weight 99.5 kg (219 lb 6.4 oz) 10/16/2024 1:43 P M BUS DRIVER SUPERVISOR Height 182.9 cm (6') 10/16/2024 1:43 PM BUS DRIVER SUPERVISOR Body Mass Index 29.76 10/16/2024 1:43 PM BUS DRIVER SUPERVISOR Plan of Treatment Health Maintenance Due Date Last Done Comments Breast Cancer Screening-Mammogram 1971 Cervical Cancer Screening 1971 Colon Cancer Screening-Colonoscopy 1971 Depression Screening 1971 DTaP/Tdap/Td Vaccine (1 - Tdap) 1982 Hepatitis B Screening 1989 Regular Well Visit/Exam 18-64 1989 Covid-19 Vaccine ( season) 2024 09/12/2021, 03/01/2021, 02/08/2021 Influenza Vaccine (#1) 2024 , 09/06/2020, 11/26/2019, Additional history exists Zoster Vaccine Completed 01/23/2022, 11/24/2021 Hepatitis C Screening Completed 04/23/2022 Pneumococcal vaccine <65 Aged Out No longer eligible based on patient's age to complete this topic Procedures Procedure Name Priority Date/Time Associated Diagnosis Comments CRP (ACUTE PHASE) Routine 02/03/2025 10: 26 AM BUS DRIVER SUPERVISOR Ankylosing 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 ERYTHROCYTE SEDIMENTATION RATE Routine 02/03/2025 10:26 AM BUS DRIVER SUPERVISOR Ankylosing spondylitis of sacral region (HCC) [facility] current use of therapeutic drug CBC WITH AUTO DIFFERENTIAL Routine 02/03/2025 10:26 AM BUS DRIVER SUPERVISOR Ankylosing spondylitis of sacral region (HCC) [facility] current use of therapeutic drug COMPREHENSIVE METABOLIC PANEL Routine 02/03/2025 10:26 AM BUS DRIVER SUPERVISOR 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 HEPATITIS PANEL, ACUTE Routine 9:50 AM CDT Polyarthralgia Positive GAVINO (antinuclear antibody) Fatigue, unspecified type from Last 3 Months or Most Recently Relevant to Health Maintenance Results * CBC with auto differential (02/03/2025 10:26 AM BUS DRIVER SUPERVISOR) WBC 5.8 3.8 - 10.8 Thousand/u L [facility] Blood 02/03/2025 10:2 6 AM BUS DRIVER SUPERVISOR 02/03/2025 10:27 AM BUS DRIVER SUPERVISOR Bhavani ALLEN LAB BLOOD ORDERABLES Final Result Performing Organization Address [facility] Co de Phone Number [facility] [address] [place] [address] * Erythrocyte sedimentation rate (02/03/2025 10:26 AM BUS DRIVER SUPERVISOR) [facility] Erythrocyte sedimentation rate 6 < OR = 30 mm/h [facility] Blood 02/03/2025 10:2 6 AM BUS DRIVER SUPERVISOR 02/03/2025 10:27 AM BUS DRIVER SUPERVISOR Bhavani ALLEN LAB BLOOD ORDERABLES Final Result Performing Organization Address [facility] de Phone Number [facility] [address] [place] [address] * CRP (acute phase) (02/03/2025 10:26 AM BUS DRIVER SUPERVISOR) [facility] C-RP <3.0 <8.0 mg/L [facility] Blood 02/03/2025 10:2 6 AM BUS DRIVER SUPERVISOR 02/03/2025 10:27 AM BUS DRIVER SUPERVISOR Bhavani ALLEN LAB BLOOD ORDERABLES Final Result Performing Organization Address [facility] Co de Phone Number [facility] [address] [place] [address] * (ABNORMAL) Comprehensive metabolic panel (02/03/2025 10:26 AM BUS DRIVER SUPERVISOR) Pathologist [facility] Glucose 83 65 - 99 mg/dL [facility] Blood 02/03/2025 10:2 6 AM BUS DRIVER SUPERVISOR 02/03/2025 10:27 AM BUS DRIVER SUPERVISOR Bhavani ALLEN LAB BLOOD ORDERABLES Final Result [facility] [address] [place] [address] * Hepatitis panel, acute (04/23/2022 9:50 AM CDT) Hep A IgM NON-REACTI VE NON-REACT OLAMIDE [facility] Comment: For additional information, please refer to http://education.Latimer Education.watAgame/faq/QGT501 (This link is being provided for informational/ [...] a test for HCV RNA (test code 45936) is suggested. For additional information please refer to http://education.AvidBiotics/faq/WCP98a2 (This link is being provided for informational/ educational purposes only.) Blood specimen (specimen) 04/23/2022 9:50 AM CDT 04/23/2022 9:51 AM CDT Bhavani ALLEN LAB MICROBIOLOGY - NERAL ORDERABLES Final Result [facility] [address] [phone] from Last 3 Months or Most Recently Relevant to Health Maintenance Insurance [facility] CHOICE PLUS Care Teams Machine Tool Operator Relationship Specialty Start Date End Date Claudio Alberts MD [address] [place] [address] PCP - General Family Medicine 04/12/22 Barrett Buenrostro MD [address] [place] [address] Consulting Physician Rheumatology 04/18/22
--- OUTSIDE RECORDS SUMMARY | 2025-02-04 09:58 | XMS_ITS | Encounter Summary ---
Author Organization [facility] Address [address] [place] [address] Phone Care Team Providers Care Systems Spec Name Role Phone Claudio Alberts MD Primary Care Provider Barrett Buenrostro MD Unavailable [phone] Encounter Details Date Type Department Care Team (Late st Contact Info) Description 02/04/2025 Results Follow-Up [facility] [address] [place] [address] Bhavani Mullins PA [address] [place] [address] Social History Tobacco Use Types Packs/Day Years [...] on file Legal Sex Female 12:29 AM MOTOR VEHICLE DISPATCHER Gender Identity Not on file Sexual Orientation Not on file 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
--- OUTSIDE RECORDS SUMMARY | 2025-02-04 09:58 | XMS_ITS | Patient Health Summary ---
Author Organization [facility] Address [address] [place] [address] Care Team Providers Care Warehouse Technician Name Role Phone Claudio Alberts MD Primary Care Provider Note from [facility] [place],non-owned Affiliates and Associated Physician Practices is amultiple site organization consisting of ambulatory clinics and hospital sitesin [place], [place], [place] and [place]. This disclosure is being madepursuant to the Care Everywhere program and may not contain all information available regarding this patient. Last updated 18.[facility] Allergies * Contrast-Gadolinium Agents For Mri Medications * Be aware that medications may not be up to date on this document. Alwaysverify current medications with the patient. * LEVOTHYROXINE SODIUM PO * Albuterol Sulfate (PROAIR HFA IN) * Fluticasone Propionate (FLONASE NA) Social History Tobacco Use Types Packs/Day Years Used Date Smoking Tobacco: Never Smokeless Tobacco: Never Sex and Gender Information Value Date Recorded Sex Assigned at Not on file Gender Identity Not on file Sexual Orientation Not on file Last Filed Vital Signs Vital Sign Reading Time Taken Comments Blood Pressure 96/68 10/17/2017 6:43 PM CRISIS INTERVENTION COUNSELOR Pulse 92 10/17/2017 6:43 PM CRISIS INTERVENTION COUNSELOR Temperature 36.8 C (98.2 F) 10/17/2017 6:43 PM CRISIS INTERVENTION COUNSELOR Respiratory Rate 16 10/17/2017 6:43 PM CRISIS INTERVENTION COUNSELOR Oxygen Saturation 98% 10/17/2017 6:43 PM CRISIS INTERVENTION COUNSELOR Inhaled Oxygen Concentration - - Weight 77.1 kg (170 lb) 10/17/2017 6:43 PM CRISIS INTERVENTION COUNSELOR Height 182.9 cm (6') 10/17/2017 6:43 PM CRISIS INTERVENTION COUNSELOR Body Mass Index 23.06 10/17/2017 6:43 PM CRISIS INTERVENTION COUNSELOR Procedures * DERMATOPATHOLOGY(Performed 06/14/2016) Results * PATHOLOGY TISSUE FOR DERMATOLOGY (06/14/2016 12:00 AM CDT) Result CASE: [id number] PATIENT: OLIVIA BRIAN PATHOLOGIC DIAGNOSIS: A. 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 Right chest: COMPOUND MELANOCYTIC NEVUS, IRRITATED C. Left axilla: COMPOUND MELANOCYTIC NEVUS, IRRITATED CLINICAL DATA: A: Pyogenic granuloma. B-C: Irritated IDN GROSS DESCRIPTION: A: Received is one formalin filled container labeled with the patients name and designated right central chest. The specimen consists of a shave biopsy measuring [id number]. Jar 0. B: Received is one formalin filled container labeled with the patients name and designated right chest. The specimen consists of a shave biopsy measuring [id number]. Jar 0. C: Received is one formalin filled container labeled with the patients name and designated left axilla. The specimen consists of a shave biopsy measuring [id number]. Jar 0. MICROSCOPIC DESCRIPTION: SPECIMEN A Sections show a proliferation of blood vessels in lobules lined by uniform endothelial cells and by fibrous septa. SPECIMEN B There are nests of melanocytes at the dermal-epiderma l junction and within the dermis. There is pigmented parakeratosis present. SPECIMEN C There are nests of melanocytes at the dermal-epiderma l junction and within the dermis. There is pigmented parakeratosis present. Electronically signed out by Samantha Mayo M.D., PhD. 06/18/2016 12:10:27PM [facility] Comment: Performed at: Dermatopathology Laboratory [facility] - Department of Dermatology [address] [place] [address], 5th [place] [address] Phone number: [phone] FAX: [phone] Skin (tissue) specimen (specimen) 06/14/2016 06/15/2016 Narrative [facility] - 06/18/2016 12:10 PM CDT Specimen A: Type->Shave Site->R central chest History->1.2 cm pink friable nodule; present for few months; hx of bleeding Impression->pyogenic granuloma vs r/o MM Check Margins:->N/A Prior Biopsy->N/A Specimen B: Type->Shave Site->R chest History->5 mm dark brown fleshy papule Impression->irritated IDN Check Margins:->N/A Prior Biopsy->N/A Specimen C: Type->Shave Site->L axilla History->7 mm dark brown fleshy papule Impression->irritated IDN Check Margins:->N/A Prior Bx->N/A Rivera Lyons MD LAB - PATHOLOGY/CYTO LOGY ORDERABLES Performing Organization Address City/State/[facility] Co de Phone Number [facility] [address]. 5th Floor Lab [address] [phone] Care Teams Warehouse Technician Relationship Specialty Start Date End Date Claudio Alberts MD [address] [place] [address] PCP - General Family Medicine 10/17/17
--- OUTSIDE RECORDS SUMMARY | 2025-02-04 09:58 | XMS_ITS | Clinical Summary ---
Author Organization [facility] Address [address], [address] [address] Phone Care Team Providers Care Lockstitch Binder Name Role Phone Claudio Alberts MD Primary Care Provider Jennifer Hernandez MD Unavailable [phone] Immunizations Immunization Administration Dates Next Due Covid-19, Mrna, Lnp-s, Pf, 30 Mcg/0.3 Ml Dose (P tomas) 09/12/2021 Social History Tobacco Use Types Packs/Day Years Used Date Smoking Tobacco: Never Assessed Comments Unknown Sex and Gender Information Value Date Recorded Sex Assigned at Not on file 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 Gender Identity Not on file Sexual Orientation Not on file Plan of Treatment Health Maintenance Due Date Last Done Comments Hepatitis C Virus (HCV) Screening 1971 TdaP Immunization 1971 Hepatitis B Immunization (1 of 3 - 19+ 3-dose series) 1990 Pap Smear 1992 Cervical Cancer Screening (CCS) 2001 HPV/Cotest 2001 Cologuard 2021 Immunochemical Fecal Occult Blood 2021 Mammogram 2021 Pneumococcal Immunization (5 0+ years) (1 of 1 - PCV) 2021 Zoster Immunization (1 of 2) 2021 Influenza Immunization (#1) 2024 10/0 05/2020, 11/26/2019 SARS-COV-2 Immunization ( season) 2024 09/12/2021, 03/01/2021, 02/08/2021 Colonoscopy 02/20/2031 02/20/2021 Colorectal Cancer Screening 02/20/2031 Respiratory Syncytial Virus (RSV) Immunization (Adult) (1 - 1-dose 75+ series) 2046 02/20/2021 Meningococcal Immunization (ACWY) Aged Out No longer eligible b ased on patient's age to complete this topic Pneumococcal Immunization Combined Aged Out No longer eligible b ased on patient's age to complete this topic Rotavirus Immunization Aged Out No lo nger eligible based on patient's age to complete this topic Procedures Procedure Name Priority Date/Time Associated Diagnosis Comments COLONOSCOPY Routine 02/20/2021 from Last 3 Months or Most Recently Relevant to Health Maintenance Results * COLONOSCOPY (02/20/2021) Manuel Shultz DO PROCEDURE/MINOR SURGICAL ORDERA BLES Final Result from Last 3 Months or Most Recently Relevant to Health Maintenance Insurance [address] [place] [id number] [facility] Care Teams Lockstitch Binder Relationship Specialty Start Date End Date Claudio Alberts MD [address] [place] [address] PCP - General Family Medicine 01/10/21 Jennifer Hernandez MD [address] [address] Obstetrics & Gynecology 01/12/21
== END 2025-02-04 09:08 | disposition home or self-care (01) ==
PROVIDERS: PCP Family Medicine; Visit Provider Family Medicine
DX: R16.0 Hepatomegaly, not elsewhere classified (principal); K59.00 Constipation, unspecified
CPT/HCPCS: 74176

== ENCOUNTER 2025-02-19 09:54 | Outpatient (CLI) | payer OTHER, SELFPAY ==
--- NOTE | ~2025-02-19 | MR_ITS ---
EXAMINATION: MR abdomen wo/w con DATE: 02/19/2025 10:49 INDICATION: Liver mass. Abdominal pain. TECHNIQUE: Magnetic resonance imaging (MRI) of the abdomen was performed without and with 19 mL Multi Abril intravenous contrast. COMPARISON: CT abdomen and pelvis 02/04/2025 FINDINGS: There is a 2.5 cm mass in the liver with interrupted peripheral puddling of contrast, consistent with a hemangioma. The gallbladder is normal. There are masses in the spleen measuring up to 5 mm, likely granulomatous disease. The pancreas and adrenal glands are normal. There are cysts in the kidneys me asuring up to 9 mm on the left. There is a 15 mm enhancing mass in right kidney. There are no dilated loops of bowel. There are no pathologically enlarged lymph nodes. There is no free intraperitoneal f luid. IMPRESSION: 1. 2.5 cm hemangioma in the liver. 2. 15 mm enhancing mass in right kidney, consistent with renal cell carcinoma. Reviewed, dictated and finalized at location A.
== END 2025-02-19 09:55 | disposition home or self-care (01) ==
LOC: MICIMG 09:55
PROVIDERS: PCP Family Medicine; Visit Provider Physician Assistant
DX: D18.03 Hemangioma of intra-abdominal structures (principal); N28.89 Other specified disorders of kidney and ureter
CPT/HCPCS: 74183; A9577

== ENCOUNTER 2025-03-03 08:49 | Outpatient (CLI) | payer OTHER, SELFPAY ==
--- NOTE | ~2025-03-03 | US_ITS ---
EXAMINATION: US retroperitoneal comp DATE: 03/03/2025 09:10 INDICATION: Right renal mass TECHNIQUE: Multiple ultrasound grayscale images of the kidneys were obtained. COMPARISON: MRI dated 02/19/2025 FINDINGS: The right kidney measures 10.1 x 3.9 x 4.2 cm. The left kidney measures 10.6 x 2.9 x 4.1 cm. The kidn eys demonstrate normal echogenicity. Subtle 1.8 cm hypoechoic mass at the lower pole of the right kid wilberto corresponding to the enhancing mass on prior MRI and concerning for renal cell carcinoma. There i s no hydronephrosis in either kidney. No stones identified. The bladder is normal. IMPRESSION: 1. 1.8 cm hypoechoic mass at the lower pole the right kidney which demonstrate enhancement on prior MRI and concerning for renal cell carcinoma. Reviewed, dictated and finalized at location A.
== END 2025-03-03 08:50 | disposition home or self-care (01) ==
LOC: GOSHIMG 08:49
PROVIDERS: PCP Urology; Visit Provider Urology
DX: N28.89 Other specified disorders of kidney and ureter (principal)
CPT/HCPCS: 76770

== ENCOUNTER 2025-07-20 13:42 | Outpatient (CLI) | payer OTHER, SELFPAY ==
--- NOTE | ~2025-07-20 | MR_ITS ---
EXAMINATION: MR abdomen wo/w con DATE: 07/20/2025 15:06 INDICATION: Right renal mass TECHNIQUE: Magnetic resonance imaging (MRI) of the abdomen was performed without and with 18 mL Multihance intravenous contrast. Sequences included coronal T2- weighted SS-FSE, coronal and axial FS 2D-FIESTA, axial STIR FSE, axial T2- weighted SS-FSE, axial T2-weighted FS SS-FSE, axial diffusion-weighted SE, axial dual-echo T1-weighted FSPGR, and axial and coronal T1-weighted LAVA. Postcontrast axial T1-weighted LAVA images were obtained in a time course. Postcontrast coronal T1-weighted LAVA images were obtained. COMPARISON: MRI dated 02/19/2025 FINDINGS: Heart size is normal. No pericardial or pleural effusion. No significant change in a 2.6 cm T2 hyperintense hemangioma with diagnostic peripheral discontiguous puddling of contrast isointense to the aorta which progressively fills in on the delayed imaging. Gallbladder, spleen, pancreas and bilateral adrenal glands are normal. 1.2 cm complex nonenhancing cyst at the lower pole of the left kidney with dependently layering T1 hyperintense blood, proteinaceous fluid versus milk of calcium. Interval postoperative changes along the posterior lower pole of the right kidney. Slightly cephalad to the postoperative changes also in the posterior lower pole the right kidney is an unchanged 1.5 cm enhancing lesion which remains concerning for renal cell carcinoma. Visualized portions of bowels are unremarkable. No pathologically enlarged abdominal or pelvic lymphadenopathy. Mild thoracolumbar spondylosis. Normal bone marrow signal throughout. IMPRESSION: 1. Unchanged 1.5 cm enhancing mass at the posterior lower pole the right kidney which remains concerning for renal cell carcinoma. Dislocated slightly cephalad to changes of interval partial nephrectomy at the posterior lower pole the left kidney. . Reviewed, dictated and finalized at location A. IMPRESSION: 1. Unchanged 1.5 cm enhancing mass at the posterior lower pole the right kidney which remains concerning for renal cell carcinoma. Dislocated slightly cephala d to changes of interval partial nephrectomy at the posterior lower pole the le ft kidney. .
--- OUTSIDE RECORDS SUMMARY | 2025-07-20 13:58 | XMS_ITS | Clinical Summary ---
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 Name Role Phone Claudio Alberts MD Primary Care Provider Barrett Buenrostro MD Unavailable Dequan Morgan MD Unavailable [phone] Allergies Active Allergy Reactions Criticality Noted Date Comments Gadolinium-Containing Contrast Media Unknown 10/17/2017 Iodinated Contrast Media Anaphylaxis High 02/23/2020 Peanut Swelling High 04/14/2025 Tingling on lips and tongue Medications cholecalciferol (Vitamin D3) 5,000 unit tablet Take 1 tablet (5,000 Units total) by mouth daily as needed Active albuterol HFA (PROVENTIL HFA,VENTOLIN HFA,PROAIR HFA) 90 mcg/actuation inhaler 1 INHALATION EVERY 4 HOURS NEEDED FOR SHORTNESS OF BREATH OR WHEEZING 2 Active escitalopram (LEXAPRO) 10 mg tablet Take 1 tablet (10 mg total) by mouth nightly 2 Active levothyroxine (SYNTHROID) 75 mcg tablet Take 1 tablet (75 mcg total) by mouth every morning 2 Active umeclidinium-vi lanteroL (ANORO ELLIPTA) 62.5-25 mcg/actuation blister with device Inhale 1 puff every morning Active meloxicam (MOBIC) 15 mg tablet Take 1 tablet (15 mg total) by mouth as needed for pain Active omeprazole (PriLOSEC) 40 mg capsule Take 1 capsule (40 mg total) by mouth as needed Active adalimumab (Humira,CF, Pen) 40 mg/0.4 mL pen injector kit Inject 0.4 mL (40 mg total) under the skin every 14 (fourteen) days 2 each 5 5 Active acetaminophen 500 mg capsuleIndicati ons:Pain Take 2 capsules (1,000 mg total) by mouth every 6 (six) hours 5 Active Active Problems Problem Noted Date Diagnosed Date Trochanteric bursitis of left hip 04/15/2025 Assessment & Plan (04/15/2025 2:12 PM CDT): Will give home exercises. Advised on meloxicam 15mg daily PRN, ice/heat, and gentle stretching. If no improvement, consider formal PT vs localized corticosteroid injection. Renal mass 03/15/2025 Positive GAVINO (antinuclear antibody) 05/03/2022 Assessment & [...] aspect of calcaneal tuberosity. Assessment & Plan (04/15/2025 2:09 PM CDT): Diagnosed with stress fractures and was seen by podiatry Dr. Espinoza. Wore a boot for several months until pain improved. Now seeing podiatry PRN. Assessment & Plan (10/16/2024 1:44 PM CLINIC NURSE): Diagnosed with stress fractures and was seen by podiatry Dr. Espinoza. Wore a boot for several months until pain improved. Now seeing podiatry PRN. Assessment & Plan (04/30/2024 9:52 AM CDT): Diagnosed with stress fractures and was seen by podiatry Dr. Espinoza. Wore a boot for several months until pain improved. Now seeing podiatry PRN. Assessment & Plan (10/31/2023 9:04 AM CLINIC NURSE): XR revealed midfoot OA bilaterally. Notes improvement [...] pain. Assessment & Plan (12/31/2022 9:52 AM CLINIC NURSE): XR revealed midfoot OA bilaterally. Notes improvement [...] vs referral to podiatry in the future. care home current use of therapeutic drug 2021 Overview (05/07/2022): TSPOT negative: 05/2022 Assessment & Plan (04/15/2025 2:11 PM CDT): Hepatitis negative: 04/2022 TSPOT negative: 05/2022 Assessment & Plan (10/16/2024 1:43 PM CLINIC NURSE): Hepatitis negative: 04/2022 TSPOT negative: 05/2022 Assessment & Plan (04/30/2024 9:28 AM CDT): Hepatitis negative: 04/2022 TSPOT negative: 05/2022 Assessment & Plan (10/31/2023 9:00 AM CLINIC NURSE): Hepatitis negative: 04/2022 TSPOT negative: 05/2022 Assessment & Plan (05/29/2023 9:46 AM CDT): Hepatitis negative: 04/2022 TSPOT negative: 05/2022 Assessment & Plan (12/31/2022 9:51 AM CLINIC NURSE): Hepatitis negative: 04/2022 TSPOT negative: 05/2022 Assessment [...] Histone <1.0, dsDNA <1, SM ab <1.0, SM/RESEARCH AFFILIATE ab <1.0, RESEARCH AFFILIATE ab M<1.0, chromatin ab <1.0, SSA/B <1.0, [...] suspicious for inflammatory arthritis. Assessment & Plan (04/15/2025 2:09 PM CDT): Low cdai. Initially c/o +GAVINO 1:640 [...] on XR, we started humira 40mg SQ d5vuigr with overall benefit of SI joint and peripheral joint pain. -Continue humira 40mg [id number] -Taking meloxicam 15mg daily PRN. -Recent labs reviewed with patient. -Follow up in 6 months. Sooner if needed. Assessment & Plan (10/16/2024 1:58 PM CLINIC NURSE): Moderate cdai. Initially c/o +GAVINO 1:640 homogenous [...] on XR, we started humira 40mg SQ k0satur with overall benefit of SI joint and peripheral joint pain. Continue humira 40mg [id number] and oxaprozin 600mg BID PRN pain. Routine [...] on XR, we started humira 40mg SQ n8sezsq with overall benefit of SI joint and peripheral joint pain. Continue humira 40mg KRx2rrmmb and oxaprozin 600mg BID PRN pain. Routine labs today. Follow up in 4-6 months. Sooner if needed. Assessment & Plan (10/31/2023 9:02 AM CLINIC NURSE): Low cdai. Initially c/o +GAVINO 1:640 homogenous [...] on XR, we started humira 40mg SQ [id number] with overall benefit of SI joint and peripheral joint pain. Continue humira 40mg [id number] and diclofenac 75mg BID for OA pain [...] on XR, we started humira 40mg SQ t3qkvsk with overall benefit of SI joint and peripheral joint pain. Continue humira 40mg QHs8uzwsk and diclofenac 75mg BID for OA pain in the b/l feet but may also provide benefit for inflammatory pain from . Recent labs reviewed with patient. Follow up in 4-6 months. Sooner if needed. Assessment & Plan (12/31/2022 9:52 AM CLINIC NURSE): C/o +GAVINO 1:640 homogenous pattern w/ new [...] on XR, we started humira 40mg SQ t0zyzre with overall benefit of SI joint and peripheral joint pain. Continue humira 40mg [id number] and diclofenac 75mg BID for OA pain [...] on XR, we started humira 40mg SQ l4qwvpc with overall benefit of SI joint and peripheral joint pain. Due to burden of disease, will administer kenalog 100 mg IM injection, in office, today. Continue humira 40mg SCm6bbhse and diclofenac 75mg BID for OA pain [...] on XR, we started humira 40mg SQ r6xzetp and she has had 3 injections so [...] will start approval of humira 40mg SQ n4ercht. Patient advised of the side effects of [...] Encounters Date Type Department Care Team Description 07/06/2025 9:00 AM CDT Therapy [facility] Otolaryngology [address] [place] [address] [address] [place] [address] [place] [address] Jaimie Duffy, FAMILY PRACTICE NURSE PRACTITIONER Dysphonia (Primary Dx) 06/14/2025 3:40 PM CDT Therapy [facility] Otolaryngology [address] [place] [address] 11[address] [place] [address] [place] [phone] Jaimie Duffy, DIANA Dysphonia (Primary Dx); Vocal cord anomaly 06/14/2025 3:40 PM CDT Office Visit [facility] - [facility] ENT [address] [facility] [address]th [place] [address] [place] [phone] Roque Short MD Dysphonia (Primary Dx); Muscle tension dysphonia 06/14/2025 Telephone [facility] Otolaryngology [address] [place], [place] [id number] Azul Juana, 05/03/2025 7:30 AM CDT - 05/03/2025 12:00 PM CDT Surgery [facility] Operating Room [address] [place] [phone] Dequan Morgan MD Robotic Assisted Right Partial Nephrectomy 05/03/2025 7:30 AM CDT Anesthesia Event [facility] Operating Room [address] [place] [phone] Carl Arellano MD Thompson, Kathryn Ann, PA 05/03/2025 5:29 AM CDT - 05/05/2025 12:47 PM CDT Hospital Encounter [address] [address] Dequan Morgan MD Renal mass Discharge Disposition: Discharge to home or self care from Last 3 Months Immunizations Immunization Administration [...] History Date Comments Anemia Asthma Thyroid disease hashimotos Anxiety and depression Migraines HLD (hyperlipidemia) Sleep apnea Osteoarthritis Ankylosing spondylitis Renal cell cancer (HCC) Family History Medical History Relation Name Comments No Known Problems Father No Known Problems Mother Heart disease Paternal Grandfather Heart disease Paternal Grandmother Relation Name Status Comments Father Alive Mother Alive Paternal Grandfather Paternal Grandmother Social History Tobacco Use Types Packs/Day Years Used Date Smoking Tobacco: Never Smokeless Tobacco: Never Tobacco Cessation:Counseling Given: Not Answered Alcohol Use Standard Drinks/Week Comments Not Currently 0 (1 standard drink = 0.6 oz pur e alcohol) AUDIT-C Answer Date Recorded Q1: How often do you have a drink containing alcohol? Never 06/14/2025 Q2: How many drinks containi ng alcohol do you have on a typical day when you are drinking? Patient does not drink Q3: How often do you have si x or more drinks on one occasion? Never 06/14/2025 Personal Safety Answer Date Recorded Have you ever been in or are you currently in a harmful physical or emotional relationship or is someone making you feel afraid or unsafe? 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 Not on file Not on file Not on file Obstetrics History Last Filed Vital Signs Vital Sign Reading Time Taken Comments Blood Pressure 134/92 06/14/2025 4:28 PM CDT Pulse 103 06/14/2025 4:28 PM CDT Temperature 36.8 C (98.3 F) 05/05/2025 7:47 AM CDT Respiratory Rate 17 05/05/2025 7:47 AM CDT Oxygen Saturation 94% 05/05/2025 7:47 AM CDT Inhaled Oxygen Concentration - - Weight 96.6 kg (213 lb) 06/14/2025 4:28 PM CDT Height 182.2 cm (5' 11.75) 06/14/2025 4:28 PM C DT Body Mass Index 29.09 06/14/2025 4:28 PM CDT Plan of Treatment Health Maintenance Due Date Last Done Comments Breast Cancer Screening-Mammogram 1970 Cervical Cancer Screening 1971 Colon Cancer Screening-Colonoscopy 1970 Depression Screening 1971 DTaP/Tdap/Td Vaccine (1 - Tdap) 1982 Hepatitis B Screening 1989 Regular Well Visit/Exam 18-64 1989 Covid-19 Vaccine (4 - 2023- season) 2024 09/12/2021, 03/01/2021, 02/08/2021 Influenza Vaccine (#1) 2025 , 09/06/2020, 11/26/2019, Additional history exists Zoster Vaccine Completed 01/23/2022, 11/24/2021 Hepatitis C Screening Completed 04/23/2022 Pneumococcal vaccine <65 Aged Out No longer eligible based on patient's age to complete this topic Procedures Procedure Name Priority Date/Time Associated Diagnosis Comments EGFR Routine 05/05/2025 4:15 AM CDT CBC WITHOUT DIFFERENTIAL Routine 05/05/2025 4:15 AM CDT BASIC METABOLIC PANEL Routine 05/05/2025 4:15 AM CDT EGFR Routine 05/04/2025 5:20 AM CDT CBC WITHOUT DIFFERENTIAL Routine 05/04/2025 5:20 AM CDT BASIC METABOLIC PANEL Routine 05/04/2025 5:20 AM CDT SURGICAL PATHOLOGY Routine 05/03/2025 10 :35 AM CDT Renal mass SC AN PROCEDURE PLACEHOLDER Routine 05/03/2025 8:14 AM CDT SC AN ELECTIVE ENDOTRACHEAL AIRWAY Routine 05/03/2025 8:14 AM CDT XI PARTIAL NEPHRECTOMY - LAPAROSCOPIC ROBOTIC ASSISTED 05/03/2025 7:34 AM CDT Renal mass B CHECK SAMPLE STAT 05/03/2025 6:30 AM CDT HEPATITIS PANEL, ACUTE Routine 04/23/2022 9:50 AM CDT Polyarthralgia Positive GAVINO (antinuclear antibody) Fatigue, unspecified type from Last 3 Months or Most Recently Relevant to Health Maintenance Results * (ABNORMAL) eGFR (05/05/2025 4:15 AM CDT) Pathologist [facility] eGFR 57(L) >=60 mL/min/1. 73 m2 Comment: Interpretive Data Reference Interval Normal >/= 90 mL/min/1.73m2 Mildly decreased* 60 - 89 mL/min/1.73m2 Mildly to moderately decreased 45 - 59 mL/min/1.73m2 Moderately to severely decreased 30 - 44 mL/min/1.73m2 Severely decreased 15 - 29 mL/min/1.73m2 Kidney Failure < 15 mL/min/1.73m2 *Relative to young adult level Estimated glomerular filtration rate is determined by the 2020 CKD-EPI equation recommended by the National Kidney Foundation (A Unifying Approach to GFR Estimation: Recommendations of the NKF-ASK Task Force on Reassessing the Inclusion of Race in Diagnosing Kidney Disease, JASN 2020). The CKD-EPI equation should not be used for patients with unstable renal function and has not been validated in children and those over 70. Current interpretive data was last reviewed 2021. Blood 05/05/2025 4:15 AM CDT 05/05/2025 5:56 AM CDT us Dequan Morgan MD LAB BLOOD ORDERABLES Final Res ult [facility] [address] Department [place] [address] * CBC without differential (05/05/2025 4:15 AM CDT) Pathologist [facility] WBC 7.55 3.80 - 9.90 K/cumm Hgb 13.3 11.9 - 15.5 g/dL [facility] Hct 38.6 35.6 - 45.5 % [facility] Plt 193 150 - 400 K/cumm [facility] MPV 11.5 9.1 - 12.3 fL [facility] RBC 4.37 3.90 - 5.20 M/cumm [facility] MCV 88.3 81.3 - 96.4 fL [facility] MCH 30.4 27.1 - 33.3 pg [facility] MCHC 34.5 32.3 - 35.7 g/dL [facility] RDW CV 13.6 11.1 - 14.9 % [facility] RDW SD 44.2 35.7 - 48.1 fL [facility] NRBC abs 0.00 0.00 - 0.01 K/cumm [facility] Blood 05/05/2025 4:15 AM CDT 05/05/2025 5:57 AM CDT us Dequan Morgan MD LAB BLOOD ORDERABLES Final Res ult [facility] [address] Department [place] [address] * (ABNORMAL) Basic metabolic panel (05/05/2025 4:15 AM CDT) Sodium 139 135 - 145 mmol/L Potassium, pl 3.6 3.3 - 4.9 mmol/L [facility] Chloride 105 97 - 110 mmol/L [facility] CO2 23 22 - 32 mmol/L [facility] Anion gap 11 2 - 15 mmol/L [facility] BUN 14 6 - 25 mg/dL [facility] Creatinine 1.15(H) 0.60 - 1.10 mg/dL [facility] Glucose 95 70 - 199 mg/dL [facility] Comment: Interpretive Data Fasting glucose >/= 126 mg/dl is diagnostic for diabetes. Fasting is defined as no caloric intake for at least 8 hours. Fasting glucose between 100 mg/dl to 125 mg/dl is diagnostic of prediabetes. In a patient with classic symptoms of hyperglycemia or hyperglycemic crisis, a random glucose >/= 200 mg/dl is diagnostic for diabetes. In the absence of unequivocal hyperglycemia, results should be confirmed by repeat testing. The classification and Diagnosis of Diabetes Diabetes Care 2021; 46: S19-S40. Current interpretive data was last revised 2022. Calcium 8.5 8.5 - 10.3 mg/dL [facility] Blood 05/05/2025 4:15 AM CDT 05/05/2025 5:56 AM CDT Dequan Morgan MD LAB BLOOD ORDERABLES Final Res ult Performing Organization Address [facility] Co de Phone Number [facility] [address] Department [employer] [place], [place] [phone] * eGFR (05/04/2025 5:20 AM CDT) eGFR 64 >=60 mL/min/1. 73 m2 Comment: Interpretive Data Reference Interval Normal >/= 90 mL/min/1.73m2 Mildly decreased* 60 - 89 mL/min/1.73m2 Mildly to moderately decreased 45 - 59 mL/min/1.73m2 Moderately to severely decreased 30 - 44 mL/min/1.73m2 Severely decreased 15 - 29 mL/min/1.73m2 Kidney Failure < 15 mL/min/1.73m2 *Relative to young adult level Estimated glomerular filtration rate is determined by the 2020 CKD-EPI equation recommended by the National Kidney Foundation (A Unifying Approach to GFR Estimation: Recommendations of the NKF-ASK Task Force on Reassessing the Inclusion of Race in Diagnosing Kidney Disease, JASN 2020). The CKD-EPI equation should not be used for patients with unstable renal function and has not been validated in children and those over 70. Current interpretive data was last reviewed 2021. Blood 05/04/2025 5:20 AM CDT 05/04/2025 6:16 AM CDT Dequan Morgan MD LAB BLOOD ORDERABLES Final Res ult Performing Organization Address [facility]/ZIP Co de Phone Number [facility] [address] Department [employer] [place], [place] [phone] * CBC without differential (05/04/2025 5:20 AM CDT) WBC 9.07 3.80 - 9.90 K/cumm Hgb 13.7 11.9 - 15.5 g/dL [facility] Hct 40.2 35.6 - 45.5 % [facility] Plt 194 150 - 400 K/cumm [facility] MPV 10.9 9.1 - 12.3 fL [facility] RBC 4.55 3.90 - 5.20 M/cumm [facility] MCV 88.4 81.3 - 96.4 fL [facility] MCH 30.1 27.1 - 33.3 pg [facility] MCHC 34.1 32.3 - 35.7 g/dL [facility] RDW CV 13.5 11.1 - 14.9 % [facility] RDW SD 44.0 35.7 - 48.1 fL [facility] NRBC abs 0.00 0.00 - 0.01 K/cumm [facility] Blood 05/04/2025 5:20 AM CDT 05/04/2025 6:16 AM CDT Dequan Morgan MD LAB BLOOD ORDERABLES Final Res ult [facility] [address] Department [place] [address] * Basic metabolic panel (05/04/2025 5:20 AM CDT) Sodium 140 135 - 145 mmol/L Potassium, pl 4.2 3.3 - 4.9 mmol/L [facility] Chloride 107 97 - 110 mmol/L [facility] CO2 23 22 - 32 mmol/L [facility] Anion gap 10 2 - 15 mmol/L [facility] BUN 14 6 - 25 mg/dL [facility] Creatinine 1.04 0.60 - 1.10 mg/dL [facility] Glucose 103 70 - 199 mg/dL [facility] Comment: Interpretive Data Fasting glucose >/= 126 mg/dl is diagnostic for diabetes. Fasting is defined as no caloric intake for at least 8 hours. Fasting glucose between 100 mg/dl to 125 mg/dl is diagnostic of prediabetes. In a patient with classic symptoms of hyperglycemia or hyperglycemic crisis, a random glucose >/= 200 mg/dl is diagnostic for diabetes. In the absence of unequivocal hyperglycemia, results should be confirmed by repeat testing. The classification and Diagnosis of Diabetes Diabetes Care 202; 46: S19-S40. Current interpretive data was last revised 2022. Calcium 8.7 8.5 - 10.3 mg/dL [facility] Blood 05/04/2025 5:20 AM CDT 05/04/2025 6:16 AM CDT us Dequan Morgan MD LAB BLOOD ORDERABLES Final Res ult [facility] [address] Department of Laboratories [place], [place] [phone] * Surgical pathology (05/03/2025 10:35 AM CDT) Tissue (Kidney, partial nephrectomy) 05/03/2025 10:35 AM CDT Comment:Placed in formalin i n lab following procedure Tissue specimen (specimen) (Kidney, partial nephrectomy) 05/03/2025 10:51 AM CDT Comment:Placed in formalin i n lab following procedure Narrative PATHOLOGY [facility] - 05/04/2025 3:36 PM CDT [place] [address] [place], [place] [address] Tele: Marina العلي MD - Race Starter Note to Patients: This report may contain a detailed description of human tissue sent by a health care provider to the laboratory for pathologic evaluation. The content of this report is essential for diagnosis and may provide important critical findings. This information may be unfamiliar to patients to review without a medical professional present. It is advised that the patient review this report in the presence of a health care provider who can answer questions and explain the details. SURGICAL PATHOLOGY REPORT Patient Name: OLIVIA BRIAN Address: [address] [place] [address], [place] [id number] Gender: F : 1970 (Age: 55) Service: Surgery Location: [place] [address], [facility] #: [id number] Patient Type: [facility] OP IN BED Taken: 05/03/2025 Received 05/03/2025 Reported: 05/04/2025 Physician(s): Yong Hendricks M.D. DIAGNOSIS: Kidney, right, excision of mass: - Benign renal cortical and medullary tissue Kidney, right, mass margin, excision: - Benign cortical tissue jap/05/04/2025 15:36 Examining Pathologist: John Dee M.D. Report Reviewed and Electronically Signed By John Dee M.D. SPECIMEN TYPE: A: RIGHT RENAL MASS B: RIGHT KIDNEY MASS MARGIN CLINICAL IMPRESSION AND HISTORY: Renal mass INTRA OPERATIVE DIAGNOSIS: OR PATH DIAGNOSIS A. Asked to evaluate right renal mass. Sections show no gross mass. Shown to surgeon. (LKB) GROSS DESCRIPTION: A. Received fresh labeled with OLIVIA BRIAN and right renal mass is a 4.3 g, 2.2 x 1.5 x 1.1 cm edge of kidney. The parenchymal margin is inked blue and the capsule is inked black. Sections uniform red soria cut surface with no gross lesions. The specimen is entirely submitted in cassettes labeled A1-A2. B. Received in formalin labeled with OLIVIA BRIAN and right kidney mass margin are multiple red-brown irregular tissue fragments measuring 1.5 x 1.2 x 0.5 cm in aggregate. The specimen is placed in a filter bag. The specimen is entirely submitted in cassette labeled B1. [facility] MICROSCOPIC DESCRIPTION: Sections from the right renal mass renal tissue with cortical and medullary components with overall intact architecture. A few calcifications are seen in the interstitium. No neoplastic components are evident. The intraoperative gross consultation is supported. Sections of the right kidney mass margin show a renal cortical tissue focal capsular and adipose component. No neoplastic elements are evident. Clerical Data Follows A; 14704 B; 70616, 72036 REPORT IMAGES AND/OR SCANNED DOCUMENTS ONLY VIEWABLE IN PDF FORMAT The immunohistochemical test(s) cited in this report, if any, was developed and its performance characteristics determined by [facility] Pathology Department. It has not been cleared or approved by the U.S. Food and Drug Administration. The FDA has determined that such clearance or approval is not necessary. This test is used for clinical purposes. It should not be regarded as investigational or for research. [facility] Laboratory is certified under the Clinical Laboratory Improvement Amendments of 1988 (CLIA) as qualified to perform high complexity testing. Immunostains were performed on formalin-fixed paraffin embedded tissue using a polymer diaminobenzidine chromogen detection system. Antibodies used may include clone SP1 (rabbit monoclonal, estrogen receptor), clone 1E2 (rabbit monoclonal progesterone receptor), Ki-67 (rabbit monoclonal, 30-9), CD117 (rabbit polyclonal, c-kit), and anti-Her-2/jeancarlos (4B5) (rabbit monoclonal primary antibody). In the event that immunohistochemistry or special stains have been performed, attending physician has confirmed appropriateness of controls. Frozen section, operating room consultation, gross examination and dissection, and case sign out may have been performed in part or completely in the following laboratories: [facility], [address] [place] [address], [address] [place] [address]. Dequan Morgan MD LAB PATHOLOGY ORDERABLES Final Result PATHOLOGY [facility] Laboratory Receiving [address] [place] [address] * SC AN ELECTIVE ENDOTRACHEAL AIRWAY, SC AN PROCEDURE PLACEHOLDER (05/03/2025 8:14 AM CDT) Narrative Zulma Torres CRNA - 05/03/2025 8:14 AM CDT Zulma Torres CRNA 05/03/2025 8:16 AM Airway Patient location: OR Urgency: elective Date/time: 05/03/2025 7:42 AM Indications for airway management: anesthesia and airway protection Difficult airway: no Staff: Supervising provider: Carl Arellano MD Placed by: ZINC PLATE GRAINER: Zulma Torres CRNA Emergent airway documentation: Risks and benefits discussed: yes Consent obtained: yes Consent given by: patient Airway prep: Preoxygenated: yes Patient position: sniffing Mask difficulty assessment: 1 - vent by mask Spontaneous ventilation during airway: absent Sedation level during airway: deep Final airway details: Final airway type: endotracheal airway Tube type: ETT ETT size: 7.0 mm Cuffed: yes Technique used for successful ETT placement: direct laryngoscopy Devices/Methods used in placement: stylet Insertion site: oral Blade type: Avendaño Blade size: 2 Cormack-Lehane (direct): grade IIa - partial view of glottis Cuff volume: 7 mL Cuff inflated with: air ETT to lips: 22 cm Placement verified by: auscultation and CO2 detection Airway secured with: silk tape Number of attempts: 1 us Carl Arellano MD ANESTHESIA ORDERA BLES Final Result * Check Sample (05/03/2025 6:30 AM CDT) ABO Rh O Negative MBC HCLL OTHER 05/03/2025 6:30 AM CDT 05/03/2025 7:00 AM CDT us Mary Fish NEWSPAPER PUBLISHER LAB BLOOD ORDERABLES Marysol l Result MARIA DOLORES [facility] [address] Department [place] [address] [facility] * Hepatitis panel, acute (04/23/2022 9:50 AM CDT) Hep A IgM NON-REACTI VE NON-REACT OLAMIDE [facility] Comment: For additional information, please refer to [email or web address] (This link is being provided for informational/ [...] a test for HCV RNA (test code 47272) is suggested. For additional information please refer to [email or web address] (This link is being provided for informational/ educational purposes only.) Blood specimen (specimen) 04/23/2022 9:50 AM CDT 04/23/2022 9:51 AM CDT Bhavani ALLEN LAB MICROBIOLOGY - GE NERAL ORDERABLES Final Result [email or web address] [address] [place] [address] from Last 3 Months or Most Recently Relevant to Health Maintenance Insurance [facility] H[facility]/PPO Address: [place] [id number] [place] [phone] [facility] HMO/PPO Address: [facility] [id number] [place] [id number] [facility] HMO/PPO Address: [facility] [id number] [address] Advance Directives For more information, please contact: [phone] * Full Code (Latest Code Status on File) Date Activated Date Inactivated Comments 05/03/2025 3:10 PM 05/05/2025 4:48 PM Care Teams 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
--- OUTSIDE RECORDS SUMMARY | 2025-07-20 13:58 | XMS_ITS | Continuity of Care Document ---
Author Organization [facility] Address [address] [facility] [address] [place] [address] Insurance Providers Payer Plan Claims Address Claims Phone Policy Number Group Number Relation Employer Guarantor Name Guarantor Guarantor Address Guarantor Phone [facility] [id number], [place] [address] tel:[phone] [id number] SELF PAY NO INSURA NCE SELF PAY NO INSUR [place], [place] [address] SELF PAY NO INSURA NCE SELF PAY NO INSUR [place] [id number] Problems Unknown Problems Results Test Result Date/Time Value / Unit Interp. Refere nce Range Comp. Metabolic Panel (14)[3 [id number]] Collected: 07/04/2024 05:05 PM Specimen Received: 07/04/2024 05:00 AM Source: [facility] Glucose [[id number]] 07/05/2024 09:55 AM 97 mg/dL 70-99 mg/dL BUN [[id number]] 07/05/2024 09:56 AM 16 mg/dL 6-2 4 mg/dL Creatinine [727594] 07/05/2024 03:30 PM 0.87 mg/dL 0.57-1.00 mg/dL eGFR [680323] 07/05/2024 03:30 PM 80 mL/min/1.73 >59 mL/min/1.73 BUN/Creatinine Ratio [484733] 07/05/2024 03:30 PM 18 9-23 Sodium [509161] 07/05/2024 09:49 AM 141 mmol/L 134-144 mmol/L Potassium [[id number]] 07/05/2024 09:50 AM 4.7 mmol/L 3.5-5.2 mmol/L Chloride [279582] 07/05/2024 09:49 AM 102 mmol/L 96-106 mmol/L Carbon Dioxide, Total [[id number]] 07/05/2024 03:30 PM 25 mmol/L 20-29 mmol/L Calcium [[id number]] 07/05/2024 09:56 AM 9.1 mg/dL 8.7-10.2 mg/dL Protein, Total [[id number]] 07/05/2024 03:30 PM 6.6 g/dL 6.0-8.5 g/dL Albumin [095917] 07/05/2024 03:30 PM 4.2 g/dL 3.8-4.9 g/dL Globulin, Total [[id number]] 07/05/2024 03:30 PM 2.4 g/dL 1.5-4.5 g/dL Bilirubin, Total [206394] 07/05/2024 03:30 PM 0.4 mg/dL 0.0-1.2 mg/dL Alkaline Phosphatase [[id number]] 07/05/2024 03:30 PM 87 IU/L 44-121 IU/L AST (SGOT) [181585] 07/05/2024 03:30 PM 20 IU/L 0-40 IU/L ALT (SGPT) [394550] 07/05/2024 03:30 PM 24 IU/L 0-32 IU/L Lipid Panel[[id number]] Collected: 07/04/2024 05:05 PM Specimen Received: 07/04/2024 05:00 AM Source: [facility] Cholesterol, Total [[id number]] 07/05/2024 03:30 PM 216 mg/dL H 100-199 mg/d L Triglycerides [244775] 07/05/2024 03:30 PM 227 mg/dL H 0-149 mg/dL HDL Cholesterol [[id number]] 07/05/2024 03:30 PM 40 mg/dL >39 mg/dL VLDL Cholesterol Fidel [986647] 07/05/2024 03:30 PM 41 mg/dL H 5-40 mg/dL LDL Chol Calc ([facility]) [[id number]] 07/05/2024 03:30 PM 135 mg/dL H 0-99 mg/dL Hemoglobin A1c[[id number]] Collected: 07/04/2024 05:05 PM Specimen Received: 07/04/2024 05:00 AM Source: [facility] Hemoglobin A1c [[id number]] 07/05/2024 03:28 PM 5.0 % 4.8-5.6 % . Prediabetes: 5.7 - 6.4 Di abetes: >6.4 Glycemic control for adults with diabetes: 7.0 Allergies, adverse reactions, alerts No known allergies and adverse reactions Medications No administered medications reported Vital Signs No vital signs reported Social History No smoking Hx information available
--- OUTSIDE RECORDS SUMMARY | 2025-07-20 13:58 | XMS_ITS | Clinical Summary ---
Author Organization [facility] Address [address], [address] [address] Phone Care Team Providers Care Food Counselor Name Role Phone Claudio Alberts MD Primary Care Provider Jennifer Hernandez MD Unavailable [phone] Immunizations Immunization Administration Dates Next Due Covid-19, Mrna, Lnp-s, Pf, 30 Mcg/0.3 Ml Dose (P tomas) 09/12/2021 Social History Tobacco Use Types Packs/Day Years Used Date Smoking Tobacco: Never Assessed Comments Unknown Sex and Gender Information Value Date Recorded Sex Assigned at Not on file 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 Gender Identity Not on file Sexual Orientation Not on file Plan of Treatment Health Maintenance Due Date Last Done Comments Hepatitis C Virus (HCV) Screening 1971 TdaP Immunization 1971 Hepatitis B Immunization (1 of 3 - 19+ 3-dose series) 1990 Pap Smear 1992 Cervical Cancer Screening (CCS) 2001 HPV/Cotest 2001 Cologuard 2016 Immunochemical Fecal Occult Blood 2016 Pneumococcal Immunization (50+ years) (1 of 1 - PCV) 2021 Zoster Immunization (1 of 2) 2021 SARS-COV-2 Immunization ( - season) 2024 09/12/2021, 03/01/2021, 02/08/2021 Influenza Immunization (#1) 2025 1006/2021, 09/06/2020, 11/26/2019, Additional history exists Colonoscopy 02/20/2031 02/20/2021 Colorectal Cancer Screening 02/20/2031 Respiratory Syncytial Virus (RSV) Immunization (Adult) (1 - 1-dose 75+ series) 2046 Human Papillomavirus (HPV) Immunization Aged Out No longer eligible based on patient's age to complete this topic Meningococcal Immunization (ACWY) Aged Out No longer eligible based on [...] Most Recently Relevant to Health Maintenance Insurance [facility] [address] [place] [address] Care Teams Food Counselor Relationship Specialty Start Date End Date Claudio Alberts MD [address] [place] [address] PCP - General Family Medicine 01/10/21 Jennifer Hernandez MD [address] [place] [address] Obstetrics & Gynecology 01/12/21
--- OUTSIDE RECORDS SUMMARY | 2025-07-20 13:58 | XMS_ITS | Clinical Summary ---
Author Organization [facility] [employer] Address [address] [facility] [place] [place] [address] Care Team Providers Care Plate Molder Name Role Phone Claudio Alberts MD Primary Care Provider [phone] Source Comments [facility] [employer],non-owned Affiliates and Associated Physician Practices is amultiple site organization consisting of ambulatory clinics and hospital sitesin [place], [place], [place] and [place]. This disclosure is being madepursuant to the Care Everywhere program and may not contain all information available regarding this patient. Last updated 18.[facility] [employer] Allergies Active Allergy Reactions Criticality Noted Date Comments Contrast-Gadolinium Agents For Mri 1 12/17/2016 Medications * Be aware that medications may not be up to date on this document. Alwaysverify current medications with the patient. LEVOTHYROXINE SODIUM PO Active Albuterol Sulfate (PROAIR HFA IN) Active Fluticasone Propionate (FLONASE NA) Active Humira, 2 Pen, 40 MG/0.4ML injection Inject 0.4 mL subcutaneously every 14 days 4 Active escitalopram (Lexapro) 10 MG tablet Take 1 (one) tablet by mouth once daily Active omeprazole (PriLOSEC) 40 MG capsule Take 1 (one) capsule by mouth once daily Active Anoro Ellipta 62.5-25 MCG/ACT inhaler Inhale 1 (one) puff by mouth once daily Active Active Problems Problem Noted Date Diagnosed Date Renal cancer 03/26/2025 Social History Tobacco Use Types Packs/Day Years Used Date Smoking Tobacco: Never Smokeless Tobacco: Never Alcohol Use Standard Drinks/Week Comments Not Currently 0 (1 standard drink = 0.6 oz pur e alcohol) Comments Unknown Sex and Gender Information Value Date Recorded Sex Assigned at Not on file 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 Gender Identity Not on file Sexual Orientation Not on file Last Filed Vital Signs Vital Sign Reading Time Taken Comments Blood Pressure 96/68 10/17/2017 6:43 PM WAREHOUSE HELPER Pulse 104 03/26/2025 9:09 AM CDT Temperature 36.3 C (97.4 F) 03/26/2025 9:09 AM CDT Respiratory Rate 14 03/26/2025 9:09 AM CDT Oxygen Saturation 99% 03/26/2025 9:09 AM CDT Inhaled Oxygen Concentration - - Weight 94.8 kg (209 lb) 03/26/2025 9:09 AM CDT Height 182.9 cm (6' 0.01) 03/26/2025 9:09 AM CD T Body Mass Index 28.34 03/26/2025 9:09 AM CDT Plan of Treatment Health Maintenance Due Date Last Done Comments COLOGUARD (AGES 45-75) - COL ON CA SCREENING 1971 COLON MONITORING 1971 COLONOSCOPY - COLON CA SCREENING 1971 CT COLONOGRAPHY - COLON CA SCREENING 1971 Colorectal Cancer Screening 1971 FIT - COLON CA SCREENING 1971 FLEX SIG - COLON CA SCREENING 1971 LIPID TESTING 1971 MAMMOGRAM 1971 HIV SCREENING 1986 HEPATITIS C SCREENING 04/23/1989 DTAP/TDAP/TD VACCINES (1 - Tdap) 1990 HEPATITIS B VACCINE (1 of 3 - 19+ 3-dose series) 1990 PAP SMEAR 1992 PNEUMOCOCCAL VACCINE 50+ (1 of 1 - PCV) 2021 ZOSTER VACCINE (1 of 2) 2021 COVID-19 VACCINE (2 - 2023-2 5 season) 2024 09/12/2021 DEPRESSION SCREENING 12/02/2024 SCREENING FOR DIABETES 03/26/2025 INFLUENZA VACCINE (#1) 2025 9, 09/14/2015 HIB VACCINE Aged Out No longer eligi ble based on patient's age to complete this topic HPV VACCINE Aged Out No longer eligi ble based on patient's age to complete this topic MENINGOCOCCAL (Group B) VACCINE SHARED DECISION-MAKING Aged Out No longer eligible based on patient's age to complete this topic MENINGOCOCCAL GROUPS A/C/Y/W VACCINE Aged Out No longer eligible b ased on patient's age to complete this topic Goals Goal Patient Goal Type Associated Problems Recent Progress Patient-Stated? Author Medication Management General On track( 025 9:20 AM CDT) Dionicio Christopher, RN Note: Expected end date: Interventions: Take all medications as prescribed Let your doctor know right away about any changes in your medications Make sure to request a refill of your medication at least one week prior to your last dose Insurance [facility] [place] [id number] * Guarantor: OLIVIA BRIAN Account Type Relation to Patient Date of Phone Billing Address Personal/Family [address] [place] [address] SELF PAY NO INSURANCE Member Subscriber Plan / Payer (Ef fective for All Dates) Name:Olivia Biran Member ID:Not on file Relation to Subscriber:Not on file Name:OLIVIA BRIAN Subscriber ID:Not on file Address[address] [address] [facility] Payer ID:Not on file Group ID:Not on file Type:Self Pay Address: [place], [place] * Guarantor: OLIVIA BRIAN Account Type Relation to Patient Date of Phone Billing Address Personal/Family [address] SELF PAY NO INSURANCE Member Subscriber Plan / Payer (Ef fective for All Dates) Name:Olivia Brian Member ID:Not on file Relation to Subscriber:Not on file Name:OLIVIA BRIAN Subscriber ID:Not on file Address: [address] Payer ID:Not on file Group ID:Not on file Type:Self Pay Address: [place], [place] * Guarantor: OLIVIA BRIAN Account Type Relation to Patient Date of Phone Billing Address Personal/Family [address] SELF PAY NO INSURANCE Member Subscriber Plan / Payer (Ef fective for All Dates) Name:Olivia Brian Member ID:Not on file Relation to Subscriber:Not on file Name:ROCOLIVIA Subscriber ID:Not on file [facility] [address] [facility] [place] [place] [address] Payer ID:Not on file Group ID:Not on file Type:Self Pay Address: [place], [place] Care Teams Plate Molder Relationship Specialty Start Date End Date Claudio Alberts MD [facility] [place] [address] PCP - General Family Medicine 10/17/17
== END 2025-07-20 13:43 | disposition home or self-care (01) ==
PROVIDERS: PCP Family Medicine; Visit Provider Urology
DX: N28.89 Other specified disorders of kidney and ureter (principal)
CPT/HCPCS: 74183; A9577

== ENCOUNTER 2025-10-18 10:55 | Outpatient (CLI) | payer OTHER, SELFPAY ==
--- NOTE | ~2025-10-18 | MM_ITS ---
EXAMINATION: MM screening any BI w jennifer HISTORY: Screening TECHNIQUE: Craniocaudal and mediolateral oblique 3-D tomosynthesis images were obtained and synthetic 2-D images were generated. CAD analysis was submitted and interpreted. COMPARISON: Comparison to multiple prior studies sequentially, with oldest reviewed study dated , 08/06/2013 BREAST PARENCHYMAL COMPOSITION: The breasts are almost entirely fatty. FINDINGS: There is no evidence of suspicious mass, calcification, or architectural distortion to suggest malignancy in either breast. IMPRESSION: 1. No mammographic evidence of malignancy. 2. Recommend routine screening mammography in one year. BI-RADS Category 1: Negative Reviewed, dictated and finalized at location B. 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
== END 2025-10-18 10:56 | disposition home or self-care (01) ==
PROVIDERS: PCP Family Medicine; Visit Provider Obstetrics & Gynecology Gynecology
DX: Z12.31 Encounter for screening mammogram for malignant neoplasm of breast (principal)
CPT/HCPCS: 77063; 77067